=== PATIENT | male | born 1950 | race African-American/Black ===

== ENCOUNTER 2016-12-22 04:09 | Inpatient (IN) ==
--- NOTE | 2016-12-22 05:07 | Emergency Department Note ---
Arrival - Arrival Chief Complaint: Shortness of Breath Stated Complaint: SOB ED Nursing Triage Note: Patient to triage with c/o SOB that has been going on for 1 weeks time but worse this morning. Patient is a dialysis patient that is due for dialysis today. Patient states that the did get him down to his dry weight at his last pull and he has not went over his fluid limitations. Patient noted to have inspiratory and expiratory wheezing in triage that worsens when patient laid supine for EKG. Denies CP. Mode of Arrival: Wheelchair Time Seen by Provider: 12/22/16 05:01 - History of Present Illness HPI Narrative: This is a 66-year-old male of descent with a history of hyperlipidemia, hypertension, chronic renal failure on hemodialysis Wednesday, gout, type 2 diabetes and hypothyroidism who presents with worsening shortness of breath which has gotten worse over the past week. The patient believes that his dialysis has not been able to bring him to his dry weight and believes that he has excessive fluid in his body. Allergies/Adverse Reactions: Allergies Allergy/AdvReac Type Severity Reaction Status Date / Time prednisone Allergy RASH Verified 12/22/16 04:26 Home Medications: Home Medications Medication Instructions Recorded Confirmed Type Allopurinol 2 tablet PO DAILY 03/06/15 12/22/16 History Docusate Sodium Cap [Colace Cap] 100 mg PO DAILY 03/06/15 12/22/16 History Isosorbide Mononitrate [Imdur] 60 mg PO DAILY 03/06/15 12/22/16 History Levothyroxine Tab [Synthroid Tab] 50 mcg PO DAILY@0700 03/06/15 12/22/16 History Lovastatin 20 mg PO DAILY 03/06/15 12/22/16 History NIFEdipine XL TAB [Procardia Xl] 90 mg PO DAILY 03/06/15 12/22/16 History Ondansetron Tab [Zofran Tab] 4 mg PO Q6HR 03/06/15 12/22/16 History Oxycodone HCl/Acetaminophen 1 each PO Q4-6H PRN 03/06/15 12/22/16 History [Oxycodone-Acetaminophen 5-325] Pantoprazole Sodium [Protonix] 40 mg PO DAILY 03/06/15 12/22/16 History Sevelamer Carbonate Tab [Renvela 800 mg PO TID W/MEALS 03/06/15 12/22/16 History Tab] Travoprost 0.004% Oph Soln 1 drop BOTH EYES BEDTIME 03/06/15 12/22/16 History [Travatan Z] cloNIDine TAB [Catapres Tab] 0.1 mg PO BEDTIME 03/06/15 12/22/16 History traMADol TAB [Ultram] 1 tablet PO Q4H PRN 03/06/15 12/22/16 History Albuterol Sulfate [Proair HFA] 2 puff INH Q4HR PRN 12/22/16 12/22/16 History Cinacalcet [Sensipar] 1 tablet PO DAILY 12/22/16 12/22/16 History Insulin Detemir [Levemir FlexPen] 30 units SUBCUT DAILY W/BREAKFAST 12/22/1609/02 History Insulin Detemir [Levemir FlexPen] 50 units SUBCUT BEDTIME 12/22/16 12/22/16 History Lidocaine/Prilocaine 1 applic TRANSDERM DIRECTED 12/22/16 12/22/16 History [Lidocaine/Prilocaine 2.5%-2.5% Cream Kit] Metoclopramide Tab [Reglan Tab] 1 tablet PO BID 12/22/16 12/22/16 History Review of System - Review of System Constitutional: Absent: fever, night sweats Eyes: Absent: redness, vision change Head/Ears/Nose/Throat: Absent: epistaxis, nasal drainage Respiratory: Absent: respiratory distress, wheezing Cardiovascular: Present: dyspnea on exertion, orthopnea. Absent: chest pain Gastrointestinal: Absent: diarrhea, constipation, hematemesis, melena Genitourinary male: Absent: hematuria Musculoskeletal: Absent: joint swelling, lower back pain Skin: Absent: change in color, change in hair/nails Neurological: Absent: numbness, paresthesias Psychiatric: Absent: anxiety, suicidal thoughts Endocrine: Absent: heat intolerance, polydipsia Hematological/Lymphatic: Absent: easy bruising, lymphadenopathy Allergic/Immunologic: Absent: urticaria, itchy eyes Medical,Surgical,& Family Hx - Medical History Cardio: History of: Hypertension (resolved) Endocrine: History of: Diabetes Mellitus (IDDM), Dyslipidemia, Thyroid Disorder Rheumatology: History of;: Gout Renal: History of: Dialysis (), Renal Failure Gastrointestinal: History of: GERD - Social History Smoking Status: Never smoker Frequency of Alcohol Use: None Type of Drug Use: None Exam Vital Signs: Vital Signs Temperature 97.3 F L 12/22/16 04:14 Pulse Rate 93 H 12/22/16 04:14 Respiratory Rate 28 H 12/22/16 04:14 Blood Pressure 158/93 12/22/16 04:14 O2 Sat by Pulse Oximetry 86 L 12/22/16 04:14 - General Exam limited due to: ALOC - Head Head exam: Present: atraumatic - Eye Eye exam: Present: PERRL, EOMI - ENT ENT exam: Present: normal exam - Neck Neck exam: Present: normal inspection - Chest Chest inspection: Present: normal inspection - Respiratory Respiratory exam: Present: rales - Cardiovascular Cardiovascular exam: Present: regular rate, normal rhythm - Abdominal Exam Abdominal exam: Present: soft, normal bowel sounds - Extremities Exam Extremities exam: Present: normal inspection, full ROM - Back Exam Back exam: Present: normal inspection, full ROM - Neurological Exam Neurological exam: Present: alert, oriented X3 - Psychiatric Psychiatric exam: Present: normal affect, normal mood - Skin Skin exam: Present: warm, dry
--- NOTE | 2016-12-22 05:11 | EKG Report ---
Stationary ECG Study [facility] ER Test Date: 12/22/2016 4:17:53 AM Pat Name: RAPHAEL SCHERER Department: Room: Gender: M Account Review Specialist: : [id number] Requested by: Andrew Haro Order Number: [id number] Reading MD: JYOTHI SANCHEZ Intervals [place] Rate: 105 P: 53 MN: 173 QRS: 32 QRSD: 94 T: 79 QT: 378 QTc: 439 Interpretive Statements SINUS TACHYCARDIA SEPTAL INFARCT, AGE UNDETERMINED Electronically Signed On 12-22-16 16:18:37 CDT by JYOTHI SANCHEZ [email or web address]
[2016-12-22 05:20] LABS: Basophils # 0.1 10*3/uL (0.0-0.2); Basophils % 0.6 % (0.0-0.8); Eosinophils # 0.4 10*3/uL (0.0-0.87); Eosinophils % 4.4 % (0.00-10.9); Hematocrit 30.1 VOL% (42.0-52.0); Hemoglobin 10.1 GM/DL (14.0-18.0); Immature Granulocytes % 0.2 %; Immature Granulocytes Absolute 0.02 #; Lymphocytes # 1.1 10*3/uL (1.4-4.0); Lymphocytes % 11.2 % (21.2-54.2); Mean Corpuscular HGB Conc 33.6 GM/DL (32-36); Mean Corpuscular Hemoglobin 30 PG (27-34); Mean Corpuscular Volume 88.5 FL (87-102); Mean Platelet Volume 10.6 FL (9.6-12.0); Monocytes # 0.5 10*3/uL (0.11-0.8); Neutrophils # 7.8 10*3/uL (1.4-7.4); Neutrophils % 78.6 % (38.7-73.9); Platelet Count 137 T/CUMM (130-400); Red Cell Distribution Width 16.6 % (9.3-17.3); White Blood Count 9.9 T/CUMM (4-12)
[2016-12-22 05:48] LABS: Elliptocytes Few; Giant Platelets Few; Hypochromasia 1+; Platelet Estimate Normal
[2016-12-22] MEDS ORDERED: ACETAMINOPHEN 325 MG TABLET PO PRN (06:04)
[2016-12-22] MEDS ORDERED: DEXTROSE 50% 25 GM/50 ML VIAL IV PRN (06:04)
[2016-12-22] MEDS ORDERED: GLUCAGON 1 MG VIAL IM PRN (06:04)
[2016-12-22] MEDS ORDERED: ONDANSETRON 4 MG/2 ML VIAL IV PRN (06:04)
[2016-12-22 06:08] LABS: Albumin 3.2 G/DL (3.4-5.0); Bilirubin,Total 0.8 MG/DL (0.2-1.0); Calcium 7.5 MG/DL (8.5-10.1); Osmolality,Calculated 279.2 MOS/KG (273-304); Potassium 4.5 MMOL/L (3.5-5.1); Total Protein 6.4 G/DL (6.4-8.3)
--- NOTE | 2016-12-22 07:22 | XRay Report ---
Exam: XR chest 1V portable Date: 12/22/2016 5:09 AM Indication: Shortness of breath Comparison: 02/21/2014 Technical: AP Findings: Cardiomegaly is present with low volume effusions and minimal platelike atelectatic change along the minor fissure. A few reticular nodular densities are present. Mediastinum is intact. No pneumothorax. External cardiac leads are present. The left dialysis catheter has been removed Impression: 1. Cardiomegaly with tiny low volume effusions and mild interstitial edema 2. Removal of the left-sided dialysis catheter without pneumothorax PROCEDURE INTERPRETED AT [facility] DEPARTMENT OF RADIOLOGY Final Report Signed by: Dr. Lazaro Ivory
--- NOTE | 2016-12-22 10:52 | Nephrology Consult Note ---
History of Present Illness Chief complaint: ESRD History of present illness: Mr. Gale is a 66 year old male with ESRD secondary to diabetes. He reports a several day history of shortness of breath which worsened last night. This is primarily PEREZ. He denies chest pain or productive cough. He dialyzes in [place] on TTS schedule Home Medications Medication Instructions Recorded Confirmed Type Allopurinol 2 tablet PO DAILY 03/06/15 12/22/16 History Docusate Sodium Cap [Colace Cap] 100 mg PO DAILY 03/06/15 12/22/16 History Isosorbide Mononitrate [Imdur] 60 mg PO DAILY 03/06/15 12/22/16 History Levothyroxine Tab [Synthroid Tab] 50 mcg PO DAILY@0700 03/06/15 12/22/16 History Lovastatin 20 mg PO DAILY 03/06/15 12/22/16 History NIFEdipine XL TAB [Procardia Xl] 90 mg PO DAILY 03/06/15 12/22/16 History Ondansetron Tab [Zofran Tab] 4 mg PO Q6HR 03/06/15 12/22/16 History Oxycodone HCl/Acetaminophen 1 each PO Q4-6H PRN 03/06/15 12/22/16 History [Oxycodone-Acetaminophen 5-325] Pantoprazole Sodium [Protonix] 40 mg PO DAILY 03/06/15 12/22/16 History Sevelamer Carbonate Tab [Renvela 800 mg PO TID W/MEALS 03/06/15 12/22/16 History Tab] Travoprost 0.004% Oph Soln 1 drop BOTH EYES BEDTIME 03/06/15 12/22/16 History [Travatan Z] cloNIDine TAB [Catapres Tab] 0.1 mg PO BEDTIME 03/06/15 12/22/16 History traMADol TAB [Ultram] 1 tablet PO Q4H PRN 03/06/15 12/22/16 History Albuterol Sulfate [Proair HFA] 2 puff INH Q4HR PRN 12/22/16 12/22/16 History Cinacalcet [Sensipar] 1 tablet PO DAILY 12/22/16 12/22/16 History Insulin Detemir [Levemir FlexPen] 30 units SUBCUT DAILY W/BREAKFAST 12/22/1609/02 History Insulin Detemir [Levemir FlexPen] 50 units SUBCUT BEDTIME 12/22/16 12/22/16 History Lidocaine/Prilocaine 1 applic TRANSDERM DIRECTED 12/22/16 12/22/16 History [Lidocaine/Prilocaine 2.5%-2.5% Cream Kit] Metoclopramide Tab [Reglan Tab] 1 tablet PO BID 12/22/16 12/22/16 History Allergies Allergy/AdvReac Type Severity Reaction Status Date / Time prednisone Allergy RASH Verified 12/22/16 04:26 Medical,Surgical,& Family Hx - Medical History Cardio: History of: Hypertension (resolved) Endocrine: History of: Diabetes Mellitus (IDDM), Dyslipidemia, Thyroid Disorder Rheumatology: History of;: Gout Respiratory: History of: Bronchitis Renal: History of: Dialysis (), Renal Failure Gastrointestinal: History of: GERD - Surgical History Abdominal Surgeries: Surgical HX of: EGD - Family History Family History: Reports;: Family Cancer (dad/mother), Family Diabetes (mother), Family Hypertension (mother), Family Stroke (mother) - Social History Smoking Status: Never smoker Frequency of Alcohol Use: None Type of Drug Use: None Review of Systems 12 point system: reviewed and no additional remarkable complaints except as stated Exam - Vital Signs Vital signs: Period Temp Pulse Resp BP Sys/Pettit Pulse Ox Last 24 Hr 97.3 F-98.2 F 73-93 18-28 153-159/87-93 86 Exam: Gen.: Alert and oriented x3. ENT: Pupils equal round reactive to light. EOMs intact. Mucous membranes moist. Neck: Supple. No JVD or bruit. Cardiovascular: Regular rate and rhythm. No murmur rub or gallop Lungs: Rales in the bases. No wheezes at present Abdomen: Soft. Nontender. Positive bowel sounds. No organomegaly Extremities: 1-2+ edema Results - Labs CBC & BMP: 12/22/16 05:00 12/22/16 05:00 Assessment and Plan (1) ESRD (end stage renal disease) Status: Acute Assessment and plan: 66-year-old man with: * ESRD. He is seen during dialysis. Blood pressure is stable. Access is working well * Volume overload. 4-5 L volume removal today * Diabetes mellitus * Hypertension Current Visit: Yes (2) Volume overload Status: Acute Current Visit: Yes (3) Diabetes mellitus Status: Acute Current Visit: Yes (4) Hypertension Status: Acute Current Visit: Yes
[2016-12-22] MEDS ORDERED: IRON SUCROSE 100 MG/5 ML VIAL IV SCH (12:00)
[2016-12-22] MEDS ORDERED: SKIN HEALING OINT (AQUAPHOR) 50 GM TUBE TOP PRN (12:22)
[2016-12-22] MEDS: INSULIN REGULAR 100 UNIT/ML SUBCUT SCH ×3 (16:03→21:27)
[2016-12-22] MEDS: DOCUSATE SODIUM 100 MG CAPSULE PO SCH ×2 (16:04→21:27)
[2016-12-22] MEDS: PANTOPRAZOLE 40 MG TABLET PO SCH (18:30)
--- NOTE | 2016-12-22 19:03 | Internal Med History&Physical ---
Assessment and Plan (1) Diabetes mellitus Status: Chronic Current Visit: Yes Qualifiers: Diabetes mellitus type: type 2 Diabetes mellitus complication status: with kidney complications Diabetes mellitus complication detail: with chronic kidney disease Diabetes mellitus parts counterman insulin use: with parts counterman use Chronic kidney disease stage: on chronic dialysis Qualified Code(s): E11.22 - Type 2 diabetes mellitus with diabetic chronic kidney disease; N18.6 - End stage renal disease; Z79.4 - long-term (current) use of insulin; Z99.2 - Dependence on renal dialysis (2) ESRD (end stage renal disease) Status: Chronic Current Visit: Yes (3) Hypertension Status: Chronic Current Visit: Yes Qualifiers: Hypertension type: essential hypertension Qualified Code(s): I10 - Essential (primary) hypertension (4) Volume overload Status: Acute Current Visit: Yes History of Present Illness Chief complaint: shortness of breath History of present illness: Mr. Gale is a 66 year old male with history of ESRD on hemodialysis per Dr. Stapleton , DM, HTN, peripheral neuropathy, history of lower extremity skin wounds ( resolved), generalized weakness to both legs and uses motorized chair, chronic lymphedema to both lower extremities, dyslipidemia, hypothyroid, who presented to ER with volume overload. He had eaten more than usual over the Holiday. Home Medications Medication Instructions Recorded Confirmed Type Allopurinol 200 mg PO DAILY 03/06/15 12/22/16 History Docusate Sodium Cap [Colace Cap] 100 mg PO DAILY 03/06/15 12/22/16 History Isosorbide Mononitrate [Imdur] 60 mg PO DAILY 03/06/15 12/22/16 History Levothyroxine Tab [Synthroid Tab] 50 mcg PO DAILY@0700 03/06/15 12/22/16 History Lovastatin 20 mg PO DAILY 03/06/15 12/22/16 History NIFEdipine XL TAB [Procardia Xl] 90 mg PO DAILY 03/06/15 12/22/16 History Ondansetron Tab [Zofran Tab] 4 mg PO Q6HR 03/06/15 12/22/16 History Oxycodone HCl/Acetaminophen 1 each PO Q4-6H PRN 03/06/15 12/22/16 History [Oxycodone-Acetaminophen 5-325] Pantoprazole Sodium [Protonix] 40 mg PO DAILY 03/06/15 12/22/16 History Sevelamer Carbonate Tab [Renvela 800 mg PO TID W/MEALS 03/06/15 12/22/16 History Tab] Travoprost 0.004% Oph Soln 1 drop BOTH EYES BEDTIME 03/06/15 12/22/16 History [Travatan Z] cloNIDine TAB [Catapres Tab] 0.1 mg PO BEDTIME 03/06/15 12/22/16 History traMADol TAB [Ultram] 50 mg PO Q4H PRN 03/06/15 12/22/16 History Albuterol Sulfate [Proair HFA] 2 puff INH Q4HR PRN 12/22/16 12/22/16 History Cinacalcet [Sensipar] 30 mg PO DAILY 12/22/16 12/22/16 History Insulin Detemir [Levemir FlexPen] 30 units SUBCUT DAILY W/BREAKFAST 12/22/1609/02 History Insulin Detemir [Levemir FlexPen] 50 units SUBCUT BEDTIME 12/22/16 12/22/16 History Lidocaine/Prilocaine 1 applic TRANSDERM DIRECTED 12/22/16 12/22/16 History [Lidocaine/Prilocaine 2.5%-2.5% Cream Kit] Metoclopramide Tab [Reglan Tab] 1 tablet PO BID 12/22/16 12/22/16 History Allergies Allergy/AdvReac Type Severity Reaction Status Date / Time prednisone Allergy RASH Verified 12/22/16 04:26 Medical,Surgical,& Family Hx - Medical History Cardio: History of: Hypertension (resolved) Endocrine: History of: Diabetes Mellitus (IDDM), Dyslipidemia, Thyroid Disorder Rheumatology: History of;: Gout Respiratory: History of: Bronchitis Renal: History of: Dialysis (), Renal Failure Gastrointestinal: History of: GERD Musculoskeletal: History of: Musculoskeletal Problems (generalized weakness) Hematology: History of: Anemia (chronic disease) - Surgical History Cardiac Surgeries: Sugical HX of: Vascular Access Devices (dialysis fistula) Abdominal Surgeries: Surgical HX of: EGD - Family History Family History: Reports;: Family Cancer (dad/mother), Family Diabetes (mother), Family Hypertension (mother), Family Stroke (mother) - Social History Smoking Status: Never smoker Frequency of Alcohol Use: None Type of Drug Use: None Marital Status: Lives With:: Spouse Functional capacity: wheelchair bound - Constitutional Constitutional: Present: fatigue, lethargy, weakness - Respiratory Respiratory: Present: dyspnea - Gastrointestinal Gastrointestinal: Present: bloating Exam - Constitutional Vitals: Period Temp Pulse Resp BP Sys/Pettit Pulse Ox Last 24 Hr 97.2 F-98.2 F 73-93 18-28 149-159/75-93 86-96 General appearance: no acute distress - Head Head exam: Present: normocephalic - Eye Eye exam: Present: EOMI - Respiratory Respiratory exam: Present: clear to auscultation bilaterally. Absent: rales - Cardiovascular Cardiovascular exam: Present: regular rate and rhythm - GI/Abdominal GI/Abdominal exam: Present: soft. Absent: tenderness - Extremities Exam Extremities exam: Present: edema (mild) - Neurological Exam Neurological exam: Present: alert - Psychiatric Psychiatric exam: Present: normal mood - Skin Skin exam: Present: warm, dry Results - Labs CBC & BMP: 12/22/16 05:00 12/22/16 05:00 - EKG EKG shows: sinus rhythm - Diagnostic Findings Procedure: Chest x-ray: report reviewed by me Quality Measures - VTE Contraindication to Pharmacological VTE Prophylaxis: High Risk of Bleeding
[2016-12-22] MEDS ORDERED: traMADol 50 MG TABLET PO PRN (19:04)
[2016-12-22] MEDS ORDERED: INSULIN GLARGINE 100 UNIT/ML SUBCUT SCH (21:00)
[2016-12-22] MEDS ORDERED: TRAVOPROST 0.004% OPH SOLN 2.5 ML BOTTLE BOTH EYES SCH (21:00)
[2016-12-22] MEDS ORDERED: cloNIDine 0.1 MG TABLET PO SCH (21:00)
[2016-12-23] MEDS: ONDANSETRON 4 MG TABLET PO SCH ×3 (00:17→12:35)
[2016-12-23] MEDS: ALBUTEROL/IPRATROPIUM 3 ML NEB RESP TX SCH ×3 (01:27→14:24)
[2016-12-23 05:29] LABS: Basophils % 0.7 % (0.0-0.8); Eosinophils # 0.5 10*3/uL (0.0-0.87); Hemoglobin 10.2 GM/DL (14.0-18.0); Immature Granulocytes % 0.3 %; Immature Granulocytes Absolute 0.02 #; Lymphocytes # 1.3 10*3/uL (1.4-4.0); Lymphocytes % 23.1 % (21.2-54.2); Mean Corpuscular HGB Conc 32.9 GM/DL (32-36); Mean Corpuscular Hemoglobin 29 PG (27-34); Mean Corpuscular Volume 88.8 FL (87-102); Mean Platelet Volume 10.5 FL (9.6-12.0); Monocytes # 0.7 10*3/uL (0.11-0.8); Monocytes % 12.2 % (1.7-12.7); Neutrophils # 3.2 10*3/uL (1.4-7.4); Neutrophils % 54.7 % (38.7-73.9); Platelet Count 134 T/CUMM (130-400); Red Blood Count 3.49 MC/CUMM (3.8-5.5); Red Cell Distribution Width 16.9 % (9.3-17.3); White Blood Count 5.8 T/CUMM (4-12)
[2016-12-23 06:10] LABS: Albumin 3.1 G/DL (3.4-5.0); Bilirubin,Total 0.7 MG/DL (0.2-1.0); Magnesium 2.4 MG/DL (1.8-2.4); Osmolality,Calculated 280.8 MOS/KG (273-304); Phosphorous 3.4 MG/DL (2.5-4.9); Potassium 4.3 MMOL/L (3.5-5.1); Total Protein 6.3 G/DL (6.4-8.3)
[2016-12-23] MEDS ORDERED: LEVOTHYROXINE 50 MCG TABLET PO SCH (07:00)
[2016-12-23] MEDS ORDERED: INSULIN GLARGINE 100 UNIT/ML SUBCUT SCH (08:00)
[2016-12-23] MEDS ORDERED: DOCUSATE SODIUM 100 MG CAPSULE PO SCH (09:00)
[2016-12-23] MEDS ORDERED: ISOSORBIDE MONONITRATE 60 MG TABLET PO SCH (09:00)
[2016-12-23] MEDS ORDERED: NON-FORMULARY MEDICATION (Pantoprazole Sodium [Protonix] 40 MG) PO SCH (09:00)
[2016-12-23] MEDS ORDERED: CINACALCET 30 MG TABLET PO SCH (09:00)
[2016-12-23] MEDS ORDERED: ALLOPURINOL 100 MG TABLET PO SCH (09:00)
[2016-12-23] MEDS: INSULIN REGULAR 100 UNIT/ML SUBCUT SCH ×3 (10:04→17:47)
[2016-12-23] MEDS: SEVELAMER CARBONATE 800 MG TABLET PO SCH ×2 (10:05→12:35)
[2016-12-23] MEDS: PANTOPRAZOLE 40 MG TABLET PO SCH (10:05)
[2016-12-23] MEDS: DOCUSATE SODIUM 100 MG CAPSULE PO SCH (10:06)
[2016-12-23] MEDS ORDERED: ZINC OXIDE PASTE 113 GM TUBE TOP PRN (10:07)
--- NOTE | 2016-12-23 13:42 | Nephrology Progress Note ---
Nephrology - PN: Subj Interval history: Shortness of breath has improved significantly. No new symptom Exam (PN)-Nephrology - Vital Signs Vital signs: Period Temp Pulse Resp BP Sys/Pettit Pulse Ox Last 24 Hr 96.9 F-98.5 F 67-80 16-20 149-171/70-78 93-99 Exam: ENT: Normal Cardiovascular: Regular rate and rhythm. No murmur rub or gallop Lungs: Clear Extremities: 1+ edema - Lab 12/23/16 05:18 12/23/16 05:18 Most recent lab results Calcium 8.0 MG/DL (8.5-10.1) L 12/23/16 05:18 Phosphorus 3.4 MG/DL (2.5-4.9) 12/23/16 05:18 Magnesium 2.4 MG/DL (1.8-2.4) 12/23/16 05:18 Assessment and Plan (1) ESRD (end stage renal disease) Status: Chronic Assessment and plan: 66-year-old man with: * ESRD. Dialysis tomorrow * Volume overload. Much improved after dialysis yesterday. He is stable for discharge. Dry weight will be decreased in the outpatient unit * Diabetes mellitus * Hypertension Current Visit: Yes (2) Volume overload Status: Acute Current Visit: Yes (3) Diabetes mellitus Status: Chronic Current Visit: Yes Qualifiers: Diabetes mellitus type: type 2 Diabetes mellitus complication status: with kidney complications Diabetes mellitus complication detail: with chronic kidney disease Diabetes mellitus parts counterman insulin use: with [facility] use Chronic kidney disease stage: on chronic dialysis Qualified Code(s): E11.22 - Type 2 diabetes mellitus with diabetic chronic kidney disease; N18.6 - End stage renal disease; Z79.4 - dedicated intermodal truck driver (current) use of insulin; Z99.2 - Dependence on renal dialysis (4) Hypertension Status: Chronic Current Visit: Yes Qualifiers: Hypertension type: essential hypertension Qualified Code(s): I10 - Essential (primary) hypertension
--- NOTE | 2016-12-23 15:31 | Discharge Summary ---
Hospital Course - Hospital Course Hospital Course: Mr. Gale is a 66 year old male with history of ESRD on hemodialysis per Dr. Stapleton , DM, HTN, peripheral neuropathy, history of lower extremity skin wounds ( resolved), generalized weakness to both legs and uses motorized chair, chronic lymphedema to both lower extremities, dyslipidemia, hypothyroid, who presented to ER with volume overload. He had eaten more than usual over the Holiday, salty snacks. About four liters were pulled off in hemodialysis, and he feels better. Ready for discharge. Diagnosis - Discharge Diagnosis (1) Diabetes mellitus Status: Chronic (2) ESRD (end stage renal disease) Status: Chronic (3) Hypertension Status: Chronic (4) Volume overload Status: Acute Discharge Plan - Discharge Data Disposition: Disch To Home/Self Care Condition at Discharge: Stable Discharge Diet: other (renal diet) - Discharge Medications New Acetaminophen Tab [Tylenol Tab] 650 mg PO Q6H PRN tablet PRN Reason: Fever > 100.4 Or Headache Skin Healing Oint (Aquaphor) [Aquaphor] 1 applic TOP PRN PRN applic PRN Reason: Dry Skin Zinc Oxide Paste [Desitin Paste] 1 applic TOP PRN PRN applic PRN Reason: Diaper Rash Docusate Sodium Cap [Colace Cap] 100 mg PO BID capsule Continue Lovastatin 20 mg PO DAILY cloNIDine TAB [Catapres Tab] 0.1 mg PO BEDTIME Sevelamer Carbonate Tab [Renvela Tab] 800 mg PO TID W/MEALS Levothyroxine Tab [Synthroid Tab] 50 mcg PO DAILY@0700 Isosorbide Mononitrate [Imdur] 60 mg PO DAILY NIFEdipine XL TAB [Procardia Xl] 90 mg PO DAILY Allopurinol 200 mg PO DAILY Ondansetron Tab [Zofran Tab] 4 mg PO Q6HR Docusate Sodium Cap [Colace Cap] 100 mg PO DAILY traMADol TAB [Ultram] 50 mg PO Q4H PRN PRN Reason: Pain Oxycodone HCl/Acetaminophen [Oxycodone-Acetaminophen 5-325] 1 each PO Q4-6H PRN PRN Reason: Pain Travoprost 0.004% Oph Soln [Travatan Z] 1 drop BOTH EYES BEDTIME Pantoprazole Sodium [Protonix] 40 mg PO DAILY Changed Oxycodone HCl/Acetaminophen [Oxycodone-Acetaminophen 5-325] 1 each PO BID PRN #0 PRN Reason: Pain No Action Metoclopramide Tab [Reglan Tab] 1 tablet PO BID Lidocaine/Prilocaine [Lidocaine/Prilocaine 2.5%-2.5% Cream Kit] 1 applic TRANSDERM DIRECTED Insulin Detemir [Levemir FlexPen] 30 units SUBCUT DAILY W/BREAKFAST Albuterol Sulfate [Proair HFA] 2 puff INH Q4HR PRN PRN Reason: Shortness Of Breath Insulin Detemir [Levemir FlexPen] 50 units SUBCUT BEDTIME Cinacalcet [Sensipar] 30 mg PO DAILY - Follow Up or Referral Follow Up: Thi Barrera DO [Primary Care Provider] - - Forms/Instructions Additional Discharge Instructions: Follow up with Dr. Anna Barrera in clinic within the next 1-2 weeks. He will see Dr. Stapleton on dialysis unit. Exam - Constitutional Vitals: Period Temp Pulse Resp BP Sys/Pettit Pulse Ox Last 24 Hr 96.9 F-98.5 F 63-81 15-20 125-171/65-78 92-100 Exam: General appearance: no acute distress - Respiratory Respiratory exam: Present: clear to auscultation bilaterally - Cardiovascular Cardiovascular exam: Present: regular rate and rhythm - Extremities Exam Extremities exam: Present: edema (mild) - Neurological Exam Neurological exam: Present: alert Discharge Results Labs on day of discharge: Labs from last 24 hours 12/23/16 12/23/16 12/23/16 11:32 08:08 05:18 WBC RBC Hgb Hct MCV MCH MCHC RDW Plt Count MPV Neut % (Auto) Lymph % (Auto) [place] % (Auto) Eos % (Auto) Baso % (Auto) Neut # (Auto) Lymph # (Auto) [place] # (Auto) Eos # (Auto) Baso # (Auto) Immature Gran % Nucleated RBC % Immature Gran # Nucleated RBCs # Immature Plt Fraction Sodium 137 Potassium 4.3 Chloride 99 Carbon Dioxide 29 Anion Gap 13.3 BUN 32 H Creatinine 7.30 H GFR Calculation 10 BUN/Creatinine Ratio 4.00 L Glucose 121 H POC Glucose 124 H 113 H Calculated Osmolality 280.8 Calcium 8.0 L Phosphorus 3.4 Magnesium 2.4 Total Bilirubin 0.70 AST 16 ALT 16 Alkaline Phosphatase 137 H Total Protein 6.3 L Albumin 3.1 L Globulin 3.2 Albumin/Globulin Ratio 0.9 L 12/23/16 12/22/16 12/22/16 05:18 21:21 16:11 WBC 5.8 D RBC 3.49 L Hgb 10.2 L Hct 31.0 L MCV 88.8 MCH 29 MCHC 32.9 RDW 16.9 Plt Count 134 MPV 10.5 Neut % (Auto) 54.7 Lymph % (Auto) 23.1 [place] % (Auto) 12.2 Eos % (Auto) 9.0 Baso % (Auto) 0.7 Neut # (Auto) 3.2 Lymph # (Auto) 1.3 L [place] # (Auto) 0.7 Eos # (Auto) 0.5 Baso # (Auto) 0.0 Immature Gran % 0.3 Nucleated RBC % 0.0 Immature Gran # 0.02 Nucleated RBCs # 0.00 Immature Plt Fraction 0.0 Sodium Potassium Chloride Carbon Dioxide Anion Gap BUN Creatinine GFR Calculation BUN/Creatinine Ratio Glucose POC Glucose 192 H 132 H Calculated Osmolality Calcium Phosphorus Magnesium Total Bilirubin AST ALT Alkaline Phosphatase Total Protein Albumin Globulin Albumin/Globulin Ratio DS: Provider Date of admission: 12/22/16 06:04 Primary care physician: Thi Barrera DO Attending physician on admission: Thi Barrera DO Consults: 12/22/16 06:04 Consult to Case Mgmt/Social Srvs [CONS] Routine Reason for Case Mgmt/Social Srvs: Discharge Planning 12/22/16 06:09 Consult to Physician [CONS] Routine Comment: Hemodialysis Consulting Provider: Alan Stapleton Consult to Specialist Group: Nephrology Person Notified: Carmela Date Notified: 12/22/16 Time Notified: 08:55 12/22/16 23:03 Consult to Occupational Therapy [CONS] Routine Reason for Occupational Therapy: Weakness 12/22/16 23:04 Consult to Physical Therapy [CONS] Routine Reason for Physical Therapy: Evaluate and Treat Discharging clinician: Thi Barrera DO Expected date of discharge: 12/23/16
[2016-12-23 18:00] VITALS: BP 179/82
== END 2016-12-23 18:25 | disposition home health service (06) | DRG 682 ==
LOC: N.ED 04:09 → N.EDINP 06:04 → N.TELEN 06:32
PROVIDERS: ADMIT Internal Medicine; ATTEND Internal Medicine

== ENCOUNTER 2017-01-25 04:22 | Inpatient (IN) ==
[2017-01-25] MEDS ORDERED: hydrALAZINE 20 MG/1 ML VIAL ONE (04:26)
[2017-01-25] MEDS ORDERED: NITROGLYCERIN DRIP 50 MG/250 ML BOTTLE IV ONE (04:39)
[2017-01-25] MEDS ORDERED: hydrALAZINE 20 MG/1 ML VIAL IV STA (05:04)
[2017-01-25 05:14] LABS: Basophils # 0.1 10*3/uL (0.0-0.2); Basophils % 0.8 % (0.0-0.8); Eosinophils # 0.8 10*3/uL (0.0-0.87); Eosinophils % 6.9 % (0.00-10.9); Hematocrit 35.8 VOL% (42.0-52.0); Hemoglobin 11.5 GM/DL (14.0-18.0); Immature Granulocytes % 0.5 %; Immature Granulocytes Absolute 0.06 #; Lymphocytes # 3.7 10*3/uL (1.4-4.0); Lymphocytes % 31.2 % (21.2-54.2); Mean Corpuscular HGB Conc 32.1 GM/DL (32-36); Mean Corpuscular Hemoglobin 29 PG (27-34); Mean Corpuscular Volume 90.2 FL (87-102); Mean Platelet Volume 9.9 FL (9.6-12.0); Monocytes # 0.7 10*3/uL (0.11-0.8); Neutrophils # 6.5 10*3/uL (1.4-7.4); Neutrophils % 54.6 % (38.7-73.9); Platelet Count 228 T/CUMM (130-400); Red Blood Count 3.97 MC/CUMM (3.8-5.5); Red Cell Distribution Width 16.5 % (9.3-17.3)
[2017-01-25 05:24] LABS: Albumin 3.5 G/DL (3.4-5.0); Bilirubin,Total 0.7 MG/DL (0.2-1.0); Calcium 8.1 MG/DL (8.5-10.1); Total Protein 7.2 G/DL (6.4-8.3)
[2017-01-25 05:26] LABS: Troponin I Only 0.079 NG/ML (0.00-0.045)
[2017-01-25] MEDS ORDERED: NITROGLYCERIN DRIP 50 MG/250 ML BOTTLE IV SCH (05:30)
--- NOTE | 2017-01-25 05:57 | Emergency Department Note ---
Arrival - Arrival Chief Complaint: Shortness of Breath Stated Complaint: cant hardly breathe ED Nursing Triage Note: Pt checked in admissions and rushed to room from front. Dr. Haro at bedside. Pt was experiencing severe respiratory distress with an oxygen saturation in the 80s. Pt had audibly wet lung sounds and was unable to catch his breath. Pt last had dialysis on Wednesday, following his Wednesday, , Wednesday schedule. Mode of Arrival: Wheelchair Time Seen by Provider: 01/25/17 04:57 - History of Present Illness HPI Narrative: This is a 66-year-old male of descent with a history of end-stage renal disease on hemodialysis Wednesday under the care of Dr. Turpin, type 2 diabetes, hypertension, diabetic peripheral neuropathy, hyperlipidemia, hypothyroidism who presents with a blood pressure 250/145 with acute respiratory failure diaphoresis and bilateral rales which woke him from sleep approximately 1 hour prior to admission. The patient's blood pressure was controlled and he was placed on CPAP with a chest x-ray showing pulmonary vascular congestion with resolution of his respiratory failure. Allergies/Adverse Reactions: Allergies Allergy/AdvReac Type Severity Reaction Status Date / Time prednisone Allergy RASH Verified 01/25/17 05:12 Home Medications: Home Medications Medication Instructions Recorded Confirmed Type Allopurinol 200 mg PO DAILY 03/06/15 12/22/16 History Docusate Sodium Cap [Colace Cap] 100 mg PO DAILY 03/06/15 12/22/16 History Isosorbide Mononitrate [Imdur] 60 mg PO DAILY 03/06/15 12/22/16 History Levothyroxine Tab [Synthroid Tab] 50 mcg PO DAILY@0700 03/06/15 12/22/16 History Lovastatin 20 mg PO DAILY 03/06/15 12/22/16 History NIFEdipine XL TAB [Procardia Xl] 90 mg PO DAILY 03/06/15 12/22/16 History Ondansetron Tab [Zofran Tab] 4 mg PO Q6HR 03/06/15 12/22/16 History Oxycodone HCl/Acetaminophen 1 each PO Q4-6H PRN 03/06/15 12/22/16 History [Oxycodone-Acetaminophen 5-325] Pantoprazole Sodium [Protonix] 40 mg PO DAILY 03/06/15 12/22/16 History Sevelamer Carbonate Tab [Renvela 800 mg PO TID W/MEALS 03/06/15 12/22/16 History Tab] Travoprost 0.004% Oph Soln 1 drop BOTH EYES BEDTIME 03/06/15 12/22/16 History [Travatan Z] cloNIDine TAB [Catapres Tab] 0.1 mg PO BEDTIME 03/06/15 12/22/16 History traMADol TAB [Ultram] 50 mg PO Q4H PRN 03/06/15 12/22/16 History Albuterol Sulfate [Proair HFA] 2 puff INH Q4HR PRN 12/22/16 12/22/16 History Cinacalcet [Sensipar] 30 mg PO DAILY 12/22/16 12/22/16 History Insulin Detemir [Levemir FlexPen] 30 units SUBCUT DAILY W/BREAKFAST 12/22/1609/02 History Insulin Detemir [Levemir FlexPen] 50 units SUBCUT BEDTIME 12/22/16 12/22/16 History Lidocaine/Prilocaine 1 applic TRANSDERM DIRECTED 12/22/16 12/22/16 History [Lidocaine/Prilocaine 2.5%-2.5% Cream Kit] Metoclopramide Tab [Reglan Tab] 1 tablet PO BID 12/22/16 12/22/16 History Acetaminophen Tab [Tylenol Tab] 650 mg PO Q6H PRN tablet 12/23/16 Rx Docusate Sodium Cap [Colace Cap] 100 mg PO BID capsule 12/23/16 Rx Oxycodone HCl/Acetaminophen 1 each PO BID PRN #0 12/23/16 12/22/16 Rx [Oxycodone-Acetaminophen 5-325] Skin Healing Oint (Aquaphor) 1 applic TOP PRN PRN applic 12/23/16 Rx [Aquaphor] Zinc Oxide Paste [Desitin Paste] 1 applic TOP PRN PRN applic 12/23/16 Rx Review of System - Review of System Constitutional: Absent: fever, night sweats Eyes: Absent: redness, vision change Head/Ears/Nose/Throat: Absent: epistaxis, nasal drainage Respiratory: Present: respiratory distress. Absent: cough, wheezing Cardiovascular: Present: dyspnea on exertion, orthopnea. Absent: edema Gastrointestinal: Absent: diarrhea, constipation, hematemesis, melena Genitourinary male: Absent: dysuria, hematuria, discharge Musculoskeletal: Absent: joint swelling, lower back pain, leg pain Skin: Absent: change in color, change in hair/nails, pruritus Neurological: Absent: numbness, paresthesias, confusion Psychiatric: Absent: anxiety, depression Endocrine: Absent: polydipsia, polyuria Hematological/Lymphatic: Absent: as per HPI, easy bleeding Allergic/Immunologic: Absent: urticaria, itchy eyes Medical,Surgical,& Family Hx - Medical History Cardio: History of: Hypertension Endocrine: History of: Diabetes Mellitus (IDDM), Dyslipidemia, Thyroid Disorder Rheumatology: History of;: Gout Respiratory: History of: Bronchitis Renal: History of: Dialysis (), Renal Failure Gastrointestinal: History of: GERD Musculoskeletal: History of: Musculoskeletal Problems (generalized weakness) Hematology: History of: Anemia (chronic disease) - Surgical History Cardiac Surgeries: Sugical HX of: Vascular Access Devices (dialysis fistula to right arm) Abdominal Surgeries: Surgical HX of: EGD - Family History Family History: Reports;: Family Cancer (dad/mother), Family Diabetes (mother), Family Hypertension (mother), Family Stroke (mother) - Social History Smoking Status: Never smoker Frequency of Alcohol Use: None Type of Drug Use: None Exam Vital Signs: Vital Signs Temperature 98.2 F 01/25/17 04:23 Pulse Rate 115 H 01/25/17 04:23 Respiratory Rate 44 H 01/25/17 04:23 Blood Pressure 203/140 01/25/17 04:23 O2 Sat by Pulse Oximetry 100 01/25/17 05:55 - General General appearance: alert - Head Head exam: Present: atraumatic, normocephalic - Eye Eye exam: Present: PERRL, EOMI - ENT ENT exam: Present: normal exam, normal oropharynx - Neck Neck exam: Present: normal inspection, full ROM - Chest Chest inspection: Present: normal inspection - Respiratory Respiratory exam: Present: rales - Cardiovascular Cardiovascular exam: Present: regular rate, normal rhythm - Abdominal Exam Abdominal exam: Present: soft, normal bowel sounds - Extremities Exam Extremities exam: Present: normal inspection, full ROM - Back Exam Back exam: Present: normal inspection, full ROM - Neurological Exam Neurological exam: Present: alert, oriented X3 - Psychiatric Psychiatric exam: Present: normal affect, normal mood - Skin Skin exam: Present: warm, dry Course Course Narrative: The case was discussed with Dr. Cazares who agreed to admit the patient for evaluation by Dr. Stapleton the outdoor illuminating engineer. The patient's acute respiratory distress was improved by controlling his blood pressure with hydralazine 20 mg IV and nitroglycerin drip. The patient was weaned off the CPAP and is now on 2 L nasal O2 speaking in complete sentences and comfortable. Results - Labs CBC & BMP: 01/25/17 04:24 01/25/17 04:24 Disposition Clinical Impression: Acute respiratory failure, Congestive heart failure Disposition: Still a Patient New Prescriptions: The case was discussed with Dr. Cazares and agreed to admit the patient for evaluation by the outdoor illuminating engineer Dr. Turpin under the service of Dr. Barrera. After the patient's blood pressure was controlled his acute respiratory distress was improved and he was weaned off the CPAP. The patient is currently on 2 L nasal O2 speaking in complete sentences and in no acute pulmonary distress.
[2017-01-25] MEDS ORDERED: ACETAMINOPHEN 325 MG TABLET PO PRN (06:01)
[2017-01-25] MEDS ORDERED: GLUCAGON 1 MG VIAL IM PRN ×2 (06:01→08:59)
[2017-01-25] MEDS ORDERED: DEXTROSE 50% 25 GM/50 ML VIAL IV PRN ×2 (06:01→08:59)
--- NOTE | 2017-01-25 06:39 | XRay Report ---
History is wheezing Comparison 12/22/2016 The heart and vessels are enlarged. Hilar contours grossly unchanged There are mildly increasing diffuse bilateral interstitial and hazy pulmonary opacities without more focal consolidation. There is mild thickening in the minor fissure. Impression: Interval development of the mild diffuse pulmonary edema PROCEDURE INTERPRETED AT [facility] DEPARTMENT OF RADIOLOGY Final Report Signed by: Dr. Cindy Sales
[2017-01-25] MEDS: DOCUSATE SODIUM 100 MG CAPSULE PO SCH ×2 (08:45→21:42)
[2017-01-25] MEDS: PANTOPRAZOLE 40 MG TABLET PO SCH (08:45)
[2017-01-25] MEDS: ALBUTEROL/IPRATROPIUM 3 ML NEB RESP TX PRN (09:14)
--- NOTE | 2017-01-25 09:41 | Order Completion Report ---
See report scanned to EMR
[2017-01-25] MEDS: BUDESONIDE 0.25 MG/2 ML NEB RESP TX SCH ×2 (09:57→19:59)
--- NOTE | 2017-01-25 10:05 | Nephrology Consult Note ---
History of Present Illness Chief complaint: ESRD History of present illness: Mr. Gale is a 66 year old male with ESRD secondary to diabetes. He presented with hypertension and shortness of breath. His hypertension was treated and is S OB has improved. He is now on BiPAP. He denies chest pain. Home Medications Medication Instructions Recorded Confirmed Type Allopurinol 200 mg PO DAILY 03/06/15 01/25/17 History Isosorbide Mononitrate [Imdur] 60 mg PO DAILY 03/06/15 01/25/17 History Levothyroxine Tab [Synthroid Tab] 50 mcg PO DAILY@0700 03/06/15 01/25/17 History Lovastatin 20 mg PO DAILY 03/06/15 01/25/17 History NIFEdipine XL TAB [Procardia Xl] 90 mg PO DAILY 03/06/15 01/25/17 History Ondansetron Tab [Zofran Tab] 4 mg PO TID PRN 03/06/15 01/25/17 History Pantoprazole Sodium [Protonix] 40 mg PO DAILY 03/06/15 01/25/17 History Sevelamer Carbonate Tab [Renvela 800 mg PO TID W/MEALS 03/06/15 01/25/17 History Tab] Travoprost 0.004% Oph Soln 1 drop BOTH EYES BEDTIME 03/06/15 01/25/17 History [Travatan Z] cloNIDine TAB [Catapres Tab] 0.1 mg PO DAILY 03/06/15 01/25/17 History traMADol TAB [Ultram] 50 mg PO Q4H PRN 03/06/15 01/25/17 History Albuterol Sulfate [Proair HFA] 2 puff INH Q4HR PRN 12/22/16 01/25/17 History Cinacalcet [Sensipar] 30 mg PO DAILY 12/22/16 01/25/17 History Insulin Detemir [Levemir FlexPen] 15 units SUBCUT BEDTIME 12/22/16 01/25/17 History Insulin Detemir [Levemir FlexPen] 30 units SUBCUT DAILY W/BREAKFAST 12/22/1601/03 History Lidocaine/Prilocaine 1 applic TRANSDERM DIRECTED 12/22/16 01/25/17 History [Lidocaine/Prilocaine 2.5%-2.5% Cream Kit] Metoclopramide Tab [Reglan Tab] 1 tablet PO BID 12/22/16 01/25/17 History Docusate Sodium Cap [Colace Cap] 100 mg PO BID PRN 01/25/17 01/25/17 History Allergies Allergy/AdvReac Type Severity Reaction Status Date / Time prednisone Allergy RASH Verified 01/25/17 05:12 Medical,Surgical,& Family Hx - Medical History Cardio: History of: Hypertension Endocrine: History of: Diabetes Mellitus (IDDM), Dyslipidemia, Thyroid Disorder Rheumatology: History of;: Gout Respiratory: History of: Bronchitis Renal: History of: Dialysis (), Renal Failure Gastrointestinal: History of: GERD Musculoskeletal: History of: Musculoskeletal Problems (generalized weakness) Hematology: History of: Anemia (chronic disease) - Surgical History Cardiac Surgeries: Sugical HX of: Vascular Access Devices (dialysis fistula to right arm) Abdominal Surgeries: Surgical HX of: EGD - Family History Family History: Reports;: Family Cancer (dad/mother), Family Diabetes (mother), Family Hypertension (mother), Family Stroke (mother) - Social History Smoking Status: Never smoker Frequency of Alcohol Use: None Type of Drug Use: None Review of Systems 12 point system: reviewed and no additional remarkable complaints except as stated Exam - Vital Signs Vital signs: Period Temp Pulse Resp BP Sys/Pettit Pulse Ox Last 24 Hr 97.8 F-98.7 F 86-120 17-44 136-203/74-140 75-100 Exam: Gen.: Alert and oriented x3. ENT: Pupils equal round reactive to light. EOMs intact. Mucous membranes moist. Neck: Supple. No JVD or bruit. Cardiovascular: Regular rate and rhythm. No murmur rub or gallop Lungs: Bibasilar rales Abdomen: Soft. Nontender. Positive bowel sounds. No organomegaly Extremities: 1-2+ edema Results - Labs CBC & BMP: 01/25/17 04:24 01/25/17 04:24 Assessment and Plan (1) ESRD (end stage renal disease) Status: Chronic Assessment and plan: 66-year-old man with: * ESRD. Emergent dialysis has been arranged * Pulmonary edema * Hypertension * Diabetes mellitus Current Visit: No (2) Volume overload Status: Acute Current Visit: No (3) Diabetes mellitus Status: Chronic Current Visit: No Qualifiers: (4) Hypertension Status: Chronic Current Visit: No Qualifiers:
--- NOTE | 2017-01-25 12:22 | Pulmonology Consult Note ---
Assessment and Plan (1) Acute respiratory failure Status: Acute Assessment and plan: He was hypoxemic earlier and has improved with facemask BiPAP. Because of this is fluid overload and congestive heart failure secondary to renal failure. Normal what he has done to become fluid overloaded in the last 2 days. Current Visit: Yes (2) Congestive heart failure Status: Acute Assessment and plan: Need to check LV ejection fraction on echo. Current Visit: Yes (3) Volume overload Status: Acute Assessment and plan: Patient is to have emergent dialysis. This should have his blood pressure and his fluid overload. Current Visit: No (4) ESRD (end stage renal disease) Status: Chronic Current Visit: No (5) Hypertension Status: Chronic Assessment and plan: Pressures improved with current medications. Should get better with dialysis. Current Visit: No Qualifiers: History of Present Illness Chief complaint: Shortness of breath History of present illness: Mr. Gale is a 66 year old male who is an end-stage renal failure patient on dialysis. He was last dialyzed on Wednesday. He came in today severely short of breath and has pulmonary edema. Dr. Stapleton has seen him and is about to be emergently dialyzed. He is now on BiPAP with 2 L oxygen and has an O2 sat in the upper 90s. He is short of breath. He does have orthopnea. He has a trace of peripheral edema. He has not had fever or chills or purulent sputum Home Medications Medication Instructions Recorded Confirmed Type Allopurinol 200 mg PO DAILY 03/06/15 01/25/17 History Isosorbide Mononitrate [Imdur] 60 mg PO DAILY 03/06/15 01/25/17 History Levothyroxine Tab [Synthroid Tab] 50 mcg PO DAILY@0700 03/06/15 01/25/17 History Lovastatin 20 mg PO DAILY 03/06/15 01/25/17 History NIFEdipine XL TAB [Procardia Xl] 90 mg PO DAILY 03/06/15 01/25/17 History Ondansetron Tab [Zofran Tab] 4 mg PO TID PRN 03/06/15 01/25/17 History Pantoprazole Sodium [Protonix] 40 mg PO DAILY 03/06/15 01/25/17 History Sevelamer Carbonate Tab [Renvela 800 mg PO TID W/MEALS 03/06/15 01/25/17 History Tab] Travoprost 0.004% Oph Soln 1 drop BOTH EYES BEDTIME 03/06/15 01/25/17 History [Travatan Z] cloNIDine TAB [Catapres Tab] 0.1 mg PO DAILY 03/06/15 01/25/17 History traMADol TAB [Ultram] 50 mg PO Q4H PRN 03/06/15 01/25/17 History Albuterol Sulfate [Proair HFA] 2 puff INH Q4HR PRN 12/22/16 01/25/17 History Cinacalcet [Sensipar] 30 mg PO DAILY 12/22/16 01/25/17 History Insulin Detemir [Levemir FlexPen] 15 units SUBCUT BEDTIME 12/22/16 01/25/17 History Insulin Detemir [Levemir FlexPen] 30 units SUBCUT DAILY W/BREAKFAST 12/22/1601/03 History Lidocaine/Prilocaine 1 applic TRANSDERM DIRECTED 12/22/16 01/25/17 History [Lidocaine/Prilocaine 2.5%-2.5% Cream Kit] Metoclopramide Tab [Reglan Tab] 1 tablet PO BID 12/22/16 01/25/17 History Docusate Sodium Cap [Colace Cap] 100 mg PO BID PRN 01/25/17 01/25/17 History Allergies Allergy/AdvReac Type Severity Reaction Status Date / Time prednisone Allergy RASH Verified 01/25/17 05:12 - Cardiovascular Cardiovascular: Present: dyspnea, dyspnea on exertion, orthopnea - Respiratory Respiratory: Present: dyspnea, dyspnea on exertion - Genitourinary Genitourinary: Present: other (Renal failure on dialysis) Exam (Pulmonay) H&P - Constitutional Vitals: Period Temp Pulse Resp BP Sys/Pettit Pulse Ox Last 24 Hr 97.8 F-98.7 F 86-120 17-44 136-203/74-140 75-100 Exam: Patient's alert responsive nods to questions. Wearing facemask BiPAP. Blood pressure was markedly elevated at 245/150 on admission. Pressure is 157/88 at present. Pupils react to light. Neck is supple. Chest reveals rales bilaterally in the bases. Heart rate in the 80s no murmurs. Abdomen soft nontender no masses. Extremities no clubbing cyanosis. He does have peripheral edema 1+. Medical,Surgical,& Family Hx - Medical History Cardio: History of: Hypertension Endocrine: History of: Diabetes Mellitus (IDDM), Dyslipidemia, Thyroid Disorder Rheumatology: History of;: Gout Respiratory: History of: Bronchitis Renal: History of: Dialysis (), Renal Failure Gastrointestinal: History of: GERD Musculoskeletal: History of: Musculoskeletal Problems (generalized weakness) Hematology: History of: Anemia (chronic disease) - Surgical History Cardiac Surgeries: Sugical HX of: Vascular Access Devices (dialysis fistula to right arm) Abdominal Surgeries: Surgical HX of: EGD - Family History Family History: Reports;: Family Cancer (dad/mother), Family Diabetes (mother), Family Hypertension (mother), Family Stroke (mother) - Social History Smoking Status: Never smoker Frequency of Alcohol Use: None Type of Drug Use: None Results - Labs CBC & BMP: 01/25/17 04:24 01/25/17 04:24 Lab Results: I have reviewed the past 24 hour labs - Diagnostic Findings Procedure: Chest x-ray: image reviewed by me (Bilateral pulmonary edema that was not present on last x-ray of 12/22/2016.) Quality Measures - VTE Contraindication to Pharmacological VTE Prophylaxis: High Risk of Bleeding
--- NOTE | 2017-01-25 12:32 | Order Completion Report ---
See report scanned to EMR
[2017-01-25 12:33] LABS: Hepatitis A Ab IgM Quant 0.21 Index; Hepatitis A Ab IgM Result Negative (Negative); Hepatitis B Core IgM Quant 0.13 Index; Hepatitis B Core IgM Result Negative (Negative); Hepatitis B Surface Ag Quant < 0.10 Index; Hepatitis B Surface Ag Result Negative (Negative); Hepatitis C Virus Ab Quant 0.04 Index; Hepatitis C Virus Ab Result Negative (Negative)
[2017-01-25] MEDS: ISOSORBIDE MONONITRATE 60 MG TABLET PO SCH (13:44)
--- NOTE | 2017-01-25 14:10 | Order Completion Report ---
See report scanned to EMR
--- NOTE | 2017-01-25 16:15 | Order Completion Report ---
See report scanned to EMR
--- NOTE | 2017-01-25 16:19 | Internal Med History&Physical ---
Assessment and Plan (1) Acute respiratory failure Status: Acute Current Visit: Yes Qualifiers: Respiratory failure complication: hypoxia Qualified Code(s): J96.01 - Acute respiratory failure with hypoxia (2) Volume overload Status: Acute Current Visit: Yes Qualifiers: Hypervolemia type: other Qualified Code(s): E87.79 - Other fluid overload (3) Diabetes mellitus Status: Chronic Current Visit: Yes Qualifiers: Diabetes mellitus type: type 2 Diabetes mellitus complication status: with kidney complications Diabetes mellitus complication detail: with chronic kidney disease Diabetes mellitus retirement insulin use: with retirement use Chronic kidney disease stage: on chronic dialysis Qualified Code(s): E11.22 - Type 2 diabetes mellitus with diabetic chronic kidney disease; N18.6 - End stage renal disease; N18.6 - End stage renal disease; N18.6 - End stage renal disease; N18.6 - End stage renal disease; Z79.4 - termite technician (current) use of insulin; Z79.4 - termite technician (current) use of insulin; Z79.4 - residential (current ) use of insulin; Z79.4 - residential (current) use of insulin; Z99.2 - Dependence on renal dialysis; Z99.2 - Dependence on renal dialysis; Z99.2 - Dependence on renal dialysis; Z99.2 - Dependence on renal dialysis (4) ESRD (end stage renal disease) Status: Chronic Current Visit: Yes (5) Hypertension Status: Chronic Current Visit: Yes Qualifiers: Hypertension type: essential hypertension History of Present Illness Chief complaint: shortness of breath History of present illness: Mr. Gale is a 66 year old male with ESRD on hemodialysis, HTN, DM, cardiomyopathy with LVEF 40%, pulmonary hypertension, history of peripheral edema and skin wounds, generalized weakness and wheelchair bound, presented to ER with worsening shortness of breath and volume overload. He reports following the PO fluid restriction, but in recent weeks, he has been over eating salty snacks. Home Medications Medication Instructions Recorded Confirmed Type Allopurinol 200 mg PO DAILY 03/06/15 01/25/17 History Isosorbide Mononitrate [Imdur] 60 mg PO DAILY 03/06/15 01/25/17 History Levothyroxine Tab [Synthroid Tab] 50 mcg PO DAILY@0700 03/06/15 01/25/17 History Lovastatin 20 mg PO DAILY 03/06/15 01/25/17 History NIFEdipine XL TAB [Procardia Xl] 90 mg PO DAILY 03/06/15 01/25/17 History Ondansetron Tab [Zofran Tab] 4 mg PO TID PRN 03/06/15 01/25/17 History Pantoprazole Sodium [Protonix] 40 mg PO DAILY 03/06/15 01/25/17 History Sevelamer Carbonate Tab [Renvela 800 mg PO TID W/MEALS 03/06/15 01/25/17 History Tab] Travoprost 0.004% Oph Soln 1 drop BOTH EYES BEDTIME 03/06/15 01/25/17 History [Travatan Z] cloNIDine TAB [Catapres Tab] 0.1 mg PO DAILY 03/06/15 01/25/17 History traMADol TAB [Ultram] 50 mg PO Q4H PRN 03/06/15 01/25/17 History Albuterol Sulfate [Proair HFA] 2 puff INH Q4HR PRN 12/22/16 01/25/17 History Cinacalcet [Sensipar] 30 mg PO DAILY 12/22/16 01/25/17 History Insulin Detemir [Levemir FlexPen] 15 units SUBCUT BEDTIME 12/22/16 01/25/17 History Insulin Detemir [Levemir FlexPen] 30 units SUBCUT DAILY W/BREAKFAST 12/22/1601/03 History Lidocaine/Prilocaine 1 applic TRANSDERM DIRECTED 12/22/16 01/25/17 History [Lidocaine/Prilocaine 2.5%-2.5% Cream Kit] Metoclopramide Tab [Reglan Tab] 1 tablet PO BID 12/22/16 01/25/17 History Docusate Sodium Cap [Colace Cap] 100 mg PO BID PRN 01/25/17 01/25/17 History Allergies Allergy/AdvReac Type Severity Reaction Status Date / Time prednisone Allergy RASH Verified 01/25/17 05:12 Medical,Surgical,& Family Hx - Medical History Cardio: History of: Hypertension Endocrine: History of: Diabetes Mellitus (IDDM), Dyslipidemia, Thyroid Disorder Rheumatology: History of;: Gout Respiratory: History of: Bronchitis Renal: History of: Dialysis (), Renal Failure Gastrointestinal: History of: GERD Musculoskeletal: History of: Musculoskeletal Problems (generalized weakness) Hematology: History of: Anemia (chronic disease) - Surgical History Cardiac Surgeries: Sugical HX of: Vascular Access Devices (dialysis fistula to right arm) Abdominal Surgeries: Surgical HX of: EGD - Family History Family History: Reports;: Family Cancer (dad/mother), Family Diabetes (mother), Family Hypertension (mother), Family Stroke (mother) - Social History Smoking Status: Never smoker Frequency of Alcohol Use: None Type of Drug Use: None Marital Status: Lives With:: Spouse Functional capacity: wheelchair bound - Constitutional Constitutional: Present: weakness - Respiratory Respiratory: Present: dyspnea, dyspnea on exertion - Gastrointestinal Gastrointestinal: Present: nausea. Absent: vomiting - Musculoskeletal Musculoskeletal: Present: muscle weakness - Psychiatric Psychiatric: Absent: anxiety Exam - Constitutional Vitals: Period Temp Pulse Resp BP Sys/Pettit Pulse Ox Last 24 Hr 97.8 F-98.7 F 80-120 13-44 136-203/74-140 75-100 General appearance: no acute distress - Head Head exam: Present: normocephalic - Eye Eye exam: Present: EOMI - Respiratory Respiratory exam: Present: decreased breath sounds, rales (scattered) - Cardiovascular Cardiovascular exam: Present: regular rate and rhythm - GI/Abdominal GI/Abdominal exam: Present: soft. Absent: tenderness - Extremities Exam Extremities exam: Present: edema (trace edema to both lower extremities) - Neurological Exam Neurological exam: Present: alert - Psychiatric Psychiatric exam: Present: normal mood - Skin Skin exam: Present: warm, dry Results - Labs CBC & BMP: 01/25/17 04:24 01/25/17 04:24 - EKG EKG shows: sinus rhythm - Diagnostic Findings Procedure: Chest x-ray: report reviewed by me Quality Measures - VTE Contraindication to Pharmacological VTE Prophylaxis: High Risk of Bleeding
--- NOTE | 2017-01-25 18:37 | Order Completion Report ---
See report scanned to EMR
[2017-01-25] MEDS: ONDANSETRON 4 MG/2 ML VIAL IV PRN (20:45)
[2017-01-26] MEDS: ALBUTEROL/IPRATROPIUM 3 ML NEB RESP TX PRN (04:20)
[2017-01-26] MEDS: ONDANSETRON 4 MG/2 ML VIAL IV PRN ×2 (05:26→23:05)
--- NOTE | 2017-01-26 07:06 | Pulmonology Progress Note ---
Pulmonary - PN: Subj Interval history: 66-year-old black male dialysis patient was hit on fluids and pulmonary edema. He has been dialyzed yesterday. He normally is on a Wednesday schedule. Feels much better and his chest x-ray shows the pulmonary edema is about 90% resolved. O2 sat is 99% on 2 L. Should be able to go to the floor today. Again I do not think he has pneumonia. Exam (Progress Note) - Constitutional Vitals: Period Temp Pulse Resp BP Sys/Pettit Pulse Ox Last 24 Hr 97.8 F-98.7 F 76-120 13-40 147-192/76-111 75-100 Exam: Patient's alert oriented vital signs normal except systolic blood pressure 165. Pupils react to light. Throat is clear. Neck is supple with no jugular venous distention. Chest reveals minimal basilar rhonchi. Heart normal rate rhythm no murmurs. Abdomen soft nontender no masses. Extremities no clubbing or cyanosis still has 1+ edema. Calves are nontender. Results - Labs CBC & BMP: 01/25/17 04:24 01/25/17 04:24 Lab Results: I have reviewed the past 24 hour labs - Diagnostic Findings Procedure: Chest x-ray: image reviewed by me (Cardiomegaly. The pulmonary edema noted yesterday looks much better. Minimal residual interstitial edema at right base) Assessment and Plan (1) Acute respiratory failure Status: Acute Assessment and plan: He was hypoxemic earlier and has improved with facemask BiPAP. Because of this is fluid overload and congestive heart failure secondary to renal failure. Normal what he has done to become fluid overloaded in the last 2 days. 01/26/2017 respiratory failure due to fluid overload and congestive heart failure. Much better after getting dialyzed. Current Visit: Yes (2) Congestive heart failure Status: Acute Assessment and plan: Need to check LV ejection fraction on echo. 01/26/2017 much better after dialysis. Echo shows ejection fraction 35-40%. Consistent with an ischemic cardiomyopathy and acute on chronic systolic congestive heart failure. Current Visit: Yes (3) Volume overload Status: Acute Assessment and plan: Patient is to have emergent dialysis. This should help his blood pressure and his fluid overload. 01/26/2017 weight is down with dialysis and pulmonary edema improved as well. Current Visit: No (4) ESRD (end stage renal disease) Status: Chronic Assessment and plan: Defer to nephrology. Was dialyzed yesterday Current Visit: No (5) Hypertension Status: Chronic Assessment and plan: Pressures improved with current medications. Should get better with dialysis. 01/26/2017 blood pressure much better postdialysis Current Visit: No Qualifiers:
[2017-01-26] MEDS: BUDESONIDE 0.25 MG/2 ML NEB RESP TX SCH ×2 (07:13→19:32)
--- NOTE | 2017-01-26 07:37 | XRay Report ---
History is CHF Comparison 01/25/2017 The heart and vessels remain enlarged with mild improvement. Prior diffuse edema has improved with minimal interstitial edema remaining. No consolidation. Impression: Interval improvement with mild residual interstitial edema PROCEDURE INTERPRETED AT [facility] DEPARTMENT OF RADIOLOGY Final Report Signed by: Dr. Cindy Sales
[2017-01-26] MEDS ORDERED: DEXTROSE 50% 25 GM/50 ML VIAL IV PRN (07:52)
[2017-01-26] MEDS ORDERED: GLUCAGON 1 MG VIAL IM PRN (07:52)
[2017-01-26] MEDS: PANTOPRAZOLE 40 MG TABLET PO SCH (08:42)
[2017-01-26] MEDS: ISOSORBIDE MONONITRATE 60 MG TABLET PO SCH (08:43)
[2017-01-26] MEDS: DOCUSATE SODIUM 100 MG CAPSULE PO SCH ×2 (08:43→21:01)
[2017-01-26] MEDS: cloNIDine 0.1 MG TABLET PO SCH (08:43)
[2017-01-26 08:49] LABS: Calcium 7.9 MG/DL (8.5-10.1); Magnesium 2.1 MG/DL (1.8-2.4); Osmolality,Calculated 279.8 MOS/KG (273-304); Phosphorous 3.6 MG/DL (2.5-4.9); Potassium 4.2 MMOL/L (3.5-5.1)
--- NOTE | 2017-01-26 11:40 | Nephrology Progress Note ---
Nephrology - PN: Subj Interval history: He feels much better today. No shortness of breath on room air. Exam (PN)-Nephrology - Vital Signs Vital signs: Period Temp Pulse Resp BP Sys/Pettit Pulse Ox Last 24 Hr 97.9 F-98.8 F 76-89 13-34 139-192/75-111 90-100 Exam: Gen.: Alert and oriented x3. ENT: Pupils equal round reactive to light. EOMs intact. Mucous membranes moist. Neck: Supple. No JVD or bruit. Cardiovascular: Regular rate and rhythm. No murmur rub or gallop Lungs: Clear Abdomen: Soft. Nontender. Positive bowel sounds. No organomegaly Extremities: 1+ edema - Lab 01/25/17 04:24 01/26/17 08:06 Most recent lab results Calcium 7.9 MG/DL (8.5-10.1) L 01/26/17 08:06 Phosphorus 3.6 MG/DL (2.5-4.9) 01/26/17 08:06 Magnesium 2.1 MG/DL (1.8-2.4) 01/26/17 08:06 Assessment and Plan (1) ESRD (end stage renal disease) Status: Chronic Assessment and plan: 66-year-old man with: * ESRD. Dialysis today * Pulmonary edema. Much improved after dialysis yesterday. Stable to move to floor * Hypertension * Diabetes mellitus Current Visit: Yes (2) Volume overload Status: Acute Current Visit: Yes Qualifiers: Hypervolemia type: other Qualified Code(s): E87.79 - Other fluid overload (3) Diabetes mellitus Status: Chronic Current Visit: Yes Qualifiers: Diabetes mellitus type: type 2 Diabetes mellitus complication status: with kidney complications Diabetes mellitus complication detail: with chronic kidney disease Diabetes mellitus manager terminal insulin use: with [facility] use Chronic kidney disease stage: on chronic dialysis Qualified Code(s): E11.22 - Type 2 diabetes mellitus with diabetic chronic kidney disease; N18.6 - End stage renal disease; Z99.2 - Dependence on renal dialysis; Z99.2 - Dependence on renal dialysis; Z99.2 - Dependence on renal dialysis; N18.6 - End stage renal disease; N18.6 - End stage renal disease; N18.6 - End stage renal disease ; Z79.4 - bed bug exterminator (current) use of insulin; Z79.4 - bed bug exterminator (current) use of insulin; Z79.4 - bed bug exterminator (current) use of insulin; Z79.4 - bed bug exterminator ( current) use of insulin; Z99.2 - Dependence on renal dialysis (4) Hypertension Status: Chronic Current Visit: Yes Qualifiers: Hypertension type: essential hypertension
[2017-01-26] MEDS: INSULIN REGULAR 100 UNIT/ML SUBCUT SCH ×3 (11:53→21:01)
--- NOTE | 2017-01-26 18:55 | Internal Med Progress Note ---
Assessment and Plan (1) Acute respiratory failure Status: Acute Current Visit: Yes Qualifiers: Respiratory failure complication: hypoxia Qualified Code(s): J96.01 - Acute respiratory failure with hypoxia (2) Volume overload Status: Acute Current Visit: Yes Qualifiers: Hypervolemia type: other Qualified Code(s): E87.79 - Other fluid overload (3) Diabetes mellitus Status: Chronic Current Visit: Yes Qualifiers: Diabetes mellitus type: type 2 Diabetes mellitus complication status: with kidney complications Diabetes mellitus complication detail: with chronic kidney disease Diabetes mellitus [facility] insulin use: with [facility] use Chronic kidney disease stage: on chronic dialysis Qualified Code(s): E11.22 - Type 2 diabetes mellitus with diabetic chronic kidney disease; N18.6 - End stage renal disease; N18.6 - End stage renal disease; N18.6 - End stage renal disease; N18.6 - End stage renal disease; Z79.4 - intermediate card tender (current) use of insulin; Z79.4 - intermediate card tender (current) use of insulin; Z79.4 - jail (current ) use of insulin; Z79.4 - jail (current) use of insulin; Z99.2 - Dependence on renal dialysis; Z99.2 - Dependence on renal dialysis; Z99.2 - Dependence on renal dialysis; Z99.2 - Dependence on renal dialysis (4) ESRD (end stage renal disease) Status: Chronic Current Visit: Yes (5) Hypertension Status: Chronic Current Visit: Yes Qualifiers: Hypertension type: essential hypertension Qualified Code(s): I10 - Essential (primary) hypertension Internal Medicine - PN: Subj Interval history: Mr. Gale is a 66 year old male with ESRD on hemodialysis, HTN, DM, cardiomyopathy with LVEF 40%, pulmonary hypertension, history of peripheral edema and skin wounds, generalized weakness and wheelchair bound, presented to ER with worsening shortness of breath and volume overload. Jan 26: he is feeling better today. Will discharge to home within the next 1- 2 days. Exam (Progress Note) - Constitutional Vitals: Period Temp Pulse Resp BP Sys/Pettit Pulse Ox Last 24 Hr 97.8 F-98.8 F 76-89 13-27 124-176/75-102 90-100 General appearance: no acute distress - Respiratory Respiratory exam: Present: clear to auscultation bilaterally - Cardiovascular Cardiovascular exam: Present: regular rate and rhythm - GI/Abdominal GI/Abdominal exam: Present: soft. Absent: tenderness - Extremities Exam Extremities exam: Absent: edema - Neurological Exam Neurological exam: Present: alert - Psychiatric Psychiatric exam: Present: normal mood - Skin Skin exam: Present: warm, dry Results - Labs CBC & BMP: 01/25/17 04:24 01/26/17 08:06 Quality Measures - VTE Contraindication to Pharmacological VTE Prophylaxis: High Risk of Bleeding
[2017-01-27 07:12] LABS: Calcium 8.4 MG/DL (8.5-10.1); Osmolality,Calculated 284.4 MOS/KG (273-304)
[2017-01-27] MEDS: BUDESONIDE 0.25 MG/2 ML NEB RESP TX SCH (07:20)
[2017-01-27] MEDS: INSULIN REGULAR 100 UNIT/ML SUBCUT SCH ×3 (08:02→16:13)
[2017-01-27] MEDS: ISOSORBIDE MONONITRATE 60 MG TABLET PO SCH (09:06)
[2017-01-27] MEDS: DOCUSATE SODIUM 100 MG CAPSULE PO SCH (09:06)
[2017-01-27] MEDS: PANTOPRAZOLE 40 MG TABLET PO SCH (09:06)
[2017-01-27] MEDS: cloNIDine 0.1 MG TABLET PO SCH (09:09)
--- NOTE | 2017-01-27 09:27 | Pulmonology Progress Note ---
Pulmonary - PN: Subj Interval history: 66-year-old black male dialysis patient was hit on fluids and pulmonary edema. He has been dialyzed yesterday. He normally is on a Wednesday schedule. Feels much better and his chest x-ray shows the pulmonary edema is about 90% resolved. O2 sat is 99% on 2 L. Should be able to go to the floor today. Again I do not think he has pneumonia. 01/27/2017 patient's weight is down 5 kg after dialysis yesterday. Feeling much better. Should be ready for discharge. I think this was mainly a fluid event. Could stop antibiotics anytime. Exam (Progress Note) - Constitutional Vitals: Period Temp Pulse Resp BP Sys/Pettit Pulse Ox Last 24 Hr 97.1 F-98.4 F 76-85 14-20 124-164/65-88 96-100 Exam: Patient's alert oriented vital signs normal except systolic blood pressure 165. Pupils react to light. Throat is clear. Neck is supple with no jugular venous distention. Chest reveals minimal basilar rhonchi. Heart normal rate rhythm no murmurs. Abdomen soft nontender no masses. Extremities no clubbing or cyanosis no edema. Calves are nontender. Results - Labs CBC & BMP: 01/25/17 04:24 01/27/17 05:46 Lab Results: I have reviewed the past 24 hour labs Assessment and Plan (1) Acute respiratory failure Status: Acute Assessment and plan: He was hypoxemic earlier and has improved with facemask BiPAP. Because of this is fluid overload and congestive heart failure secondary to renal failure. Normal what he has done to become fluid overloaded in the last 2 days. 01/26/2017 respiratory failure due to fluid overload and congestive heart failure. Much better after getting dialyzed. 01/27/2017 could check room air O2 sat. Current Visit: Yes Qualifiers: Respiratory failure complication: hypoxia Qualified Code(s): J96.01 - Acute respiratory failure with hypoxia (2) Congestive heart failure Status: Acute Assessment and plan: Need to check LV ejection fraction on echo. 01/26/2017 much better after dialysis. Echo shows ejection fraction 35-40%. Consistent with an ischemic cardiomyopathy and acute on chronic systolic congestive heart failure. 01/27/2017 much improved after dialysis. Patient is subject to congestive heart failure if he gets that he had on fluid between dialysis. Current Visit: Yes (3) Volume overload Status: Acute Assessment and plan: Patient is to have emergent dialysis. This should help his blood pressure and his fluid overload. 01/26/2017 weight is down with dialysis and pulmonary edema improved as well. 01/27/2017 this is resolved. Current Visit: Yes Qualifiers: Hypervolemia type: other Qualified Code(s): E87.79 - Other fluid overload (4) ESRD (end stage renal disease) Status: Chronic Assessment and plan: Defer to nephrology. Was dialyzed yesterday 01/27/2017 patient was dialyzed both Wednesday and Wednesday. Current Visit: Yes (5) Hypertension Status: Chronic Assessment and plan: Pressures improved with current medications. Should get better with dialysis. 01/26/2017 blood pressure much better postdialysis 01/27/2017 systolic pressure in the 150 range. Current Visit: Yes Qualifiers: Hypertension type: essential hypertension Qualified Code(s): I10 - Essential (primary) hypertension
[2017-01-27 16:34] VITALS: BP 140/74
--- NOTE | 2017-01-27 17:24 | Discharge Summary ---
Hospital Course - Hospital Course Hospital Course: Mr. Gale is a 66 year old male with ESRD on hemodialysis, HTN, DM, cardiomyopathy with LVEF 40%, pulmonary hypertension, history of peripheral edema and skin wounds, generalized weakness and wheelchair bound, presented to ER with worsening shortness of breath and volume overload. He is now doing better after hemodialysis last two days. Will discharge him to home. Diagnosis - Discharge Diagnosis (1) Acute respiratory failure Status: Resolved (2) Volume overload Status: Resolved (3) Diabetes mellitus Status: Chronic (4) ESRD (end stage renal disease) Status: Chronic (5) Hypertension Status: Chronic Discharge Plan - Discharge Data Disposition: Disch To Home/Self Care Condition at Discharge: Stable Discharge Diet: other (renal diet) Activity: increase activity as tolerated - Discharge Medications New Acetaminophen Tab [Tylenol Tab] 650 mg PO Q6H PRN tablet PRN Reason: Fever > 100.4 Or Headache Docusate Sodium Cap [Colace Cap] 100 mg PO BID capsule Continue Lovastatin 20 mg PO DAILY cloNIDine TAB [Catapres Tab] 0.1 mg PO DAILY Sevelamer Carbonate Tab [Renvela Tab] 800 mg PO TID W/MEALS Levothyroxine Tab [Synthroid Tab] 50 mcg PO DAILY@0700 Isosorbide Mononitrate [Imdur] 60 mg PO DAILY NIFEdipine XL TAB [Procardia Xl] 90 mg PO DAILY Allopurinol 200 mg PO DAILY Ondansetron Tab [Zofran Tab] 4 mg PO TID PRN PRN Reason: Nausea traMADol TAB [Ultram] 50 mg PO Q4H PRN PRN Reason: Pain Travoprost 0.004% Oph Soln [Travatan Z] 1 drop BOTH EYES BEDTIME Pantoprazole Sodium [Protonix] 40 mg PO DAILY Metoclopramide Tab [Reglan Tab] 1 tablet PO BID Lidocaine/Prilocaine [Lidocaine/Prilocaine 2.5%-2.5% Cream Kit] 1 applic TRANSDERM DIRECTED Insulin Detemir [Levemir FlexPen] 30 units SUBCUT DAILY W/BREAKFAST Albuterol Sulfate [Proair HFA] 2 puff INH Q4HR PRN PRN Reason: Shortness Of Breath Insulin Detemir [Levemir FlexPen] 15 units SUBCUT BEDTIME Cinacalcet [Sensipar] 30 mg PO DAILY Docusate Sodium Cap [Colace Cap] 100 mg PO BID PRN PRN Reason: Constipation - Follow Up or Referral Follow Up: Thi Barrera DO [Primary Care Provider] - - Forms/Instructions Additional Discharge Instructions: Follow up with Dr. Anna Barrera in clinic within 2 weeks. Follow up with hemodialysis and Dr. Stapleton per schedule already set. Exam - Constitutional Vitals: Period Temp Pulse Resp BP Sys/Pettit Pulse Ox Last 24 Hr 97.1 F-98.4 F 71-85 16-20 132-164/61-78 96-100 General appearance: no acute distress - Respiratory Respiratory exam: Present: clear to auscultation bilaterally - Cardiovascular Cardiovascular exam: Present: regular rate and rhythm - GI/Abdominal GI/Abdominal exam: Present: soft - Extremities Exam Extremities exam: Absent: edema - Neurological Exam Neurological exam: Present: alert - Psychiatric Psychiatric exam: Present: normal mood - Skin Skin exam: Present: warm, dry Discharge Results Procedures and tests throughout hospitalization: Pending Orders 01/28/17 04:00 Basic Metabolic Panel IN AM Labs on day of discharge: Labs from last 24 hours 01/27/17 01/27/17 01/27/17 15:55 11:50 07:31 Sodium Potassium Chloride Carbon Dioxide Anion Gap BUN Creatinine GFR Calculation BUN/Creatinine Ratio Glucose POC Glucose 139 H 264 H 144 H Calculated Osmolality Calcium 01/27/17 01/26/17 01/26/17 05:46 20:06 17:35 Sodium 140 Potassium 4.0 Chloride 100 Carbon Dioxide 31 Anion Gap 13.0 BUN 24 H Creatinine 5.70 H GFR Calculation 14 BUN/Creatinine Ratio 4.00 L Glucose 129 H POC Glucose 177 H 158 H Calculated Osmolality 284.4 Calcium 8.4 L DS: Provider Date of admission: 01/25/17 06:01 Primary care physician: Thi Barrera DO Attending physician on admission: Thi Barrera DO Consults: 01/25/17 06:01 Consult to Case Mgmt/Social Srvs [CONS] Routine Reason for Case Mgmt/Social Srvs: Discharge Planning 01/25/17 06:04 Consult to Physician [CONS] Routine Comment: Consulting Provider: Alan Stapleton Person Notified: Carmela Date Notified: 01/25/17 Time Notified: 08:55 01/25/17 09:42 Consult to Physician [CONS] Routine Comment: resp. distress Consulting Provider: Consulting Provider Notified: Yes Consult to Specialist Group: Pulmonology Person Notified: GLORIA Date Notified: 01/25/17 Time Notified: 10:15 Discharging clinician: Thi Barrera DO Expected date of discharge: 01/27/17
--- NOTE | 2017-01-27 18:47 | Nephrology Progress Note ---
Nephrology - PN: Subj Interval history: He denies shortness of breath. No new symptoms Exam (PN)-Nephrology - Vital Signs Vital signs: Period Temp Pulse Resp BP Sys/Pettit Pulse Ox Last 24 Hr 97.1 F-98.4 F 71-85 16-20 132-164/61-78 96-100 Exam: ENT: Normal Cardiovascular: Regular rate and rhythm. No murmur rub or gallop Lungs: Clear Extremities: 1+ edema - Lab 01/25/17 04:24 01/27/17 05:46 Most recent lab results Calcium 8.4 MG/DL (8.5-10.1) L 01/27/17 05:46 Phosphorus 3.6 MG/DL (2.5-4.9) 01/26/17 08:06 Magnesium 2.1 MG/DL (1.8-2.4) 01/26/17 08:06 Assessment and Plan (1) ESRD (end stage renal disease) Status: Chronic Assessment and plan: 66-year-old man with: * ESRD. * Pulmonary edema. Resolved * Hypertension * Diabetes mellitus (2) Volume overload Status: Resolved Qualifiers: Hypervolemia type: other Qualified Code(s): E87.79 - Other fluid overload (3) Diabetes mellitus Status: Chronic Qualifiers: Diabetes mellitus type: type 2 Diabetes mellitus complication status: with kidney complications Diabetes mellitus complication detail: with chronic kidney disease Diabetes mellitus termite technician insulin use: with [facility] use Chronic kidney disease stage: on chronic dialysis Qualified Code(s): E11.22 - Type 2 diabetes mellitus with diabetic chronic kidney disease; N18.6 - End stage renal disease; Z99.2 - Dependence on renal dialysis; Z99.2 - Dependence on renal dialysis; Z99.2 - Dependence on renal dialysis; N18.6 - End stage renal disease; N18.6 - End stage renal disease; N18.6 - End stage renal disease ; Z79.4 - group home (current) use of insulin; Z79.4 - group home (current) use of insulin; Z79.4 - group home (current) use of insulin; Z79.4 - group home ( current) use of insulin; Z99.2 - Dependence on renal dialysis (4) Hypertension Status: Chronic Qualifiers: Hypertension type: essential hypertension Qualified Code(s): I10 - Essential (primary) hypertension Specialty Discharge - Follow Up or Referrals Follow up with: Thi Barrera DO [Primary Care Provider] - 2 Weeks
== END 2017-01-27 18:42 | disposition home or self-care (01) | DRG 291 ==
LOC: N.ED 04:22 → N.EDINP 06:01 → N.TELEN 07:53 → N.ICU 09:40 → N.5E 01-26 14:06
PROVIDERS: ADMIT Internal Medicine; ATTEND Internal Medicine

== ENCOUNTER 2019-11-21 22:09 | Observation (INO) ==
[2019-11-21 22:41] LABS: Basophils # 0.1 10*3/uL (0.0-0.2); Eosinophils # 0.2 10*3/uL (0.0-0.87); Eosinophils % 3.3 % (0.00-10.9); Hematocrit 24.2 VOL% (42.0-52.0); Hemoglobin 7.6 GM/DL (14.0-18.0); Immature Granulocytes % 0.2 %; Immature Granulocytes Absolute 0.01 #; Lymphocytes # 0.6 10*3/uL (1.4-4.0); Mean Corpuscular HGB Conc 31.4 GM/DL (32-36); Mean Corpuscular Volume 89.3 FL (87-102); Mean Platelet Volume 9.5 FL (9.6-12.0); Monocytes % 5.1 % (1.7-12.7); Neutrophils % 78.4 % (38.7-73.9); Platelet Count 91 T/CUMM (130-400); Red Blood Count 2.71 MC/CUMM (3.8-5.5); Red Cell Distribution Width 17.2 % (9.3-17.3); White Blood Count 5.1 T/CUMM (4-12)
[2019-11-21 22:49] LABS: INR 1.1; PT Patient Result 11.7 SECS (9.8-11.9); Partial Thromboplastin Time 29.3 SECS (23.9-33.8)
[2019-11-21] MEDS ORDERED: NITROGLYCERIN 2% OINT 1 INCH/GM PACK TOP STA (22:59)
[2019-11-21 23:02] LABS: Alanine Aminotransferase < 6 U/L (16-61); Albumin 3.3 G/DL (3.4-5.0); Alkaline Phosphatase 130 U/L (45-117); Aspartate Amino Transferase 15 U/L (0-37); Blood Urea Nitrogen 11 MG/DL (7-18); Calcium 9.1 MG/DL (8.5-10.1); Estimated Glom Filtration Rate 20 ML/MIN; Glucose 202 MG/DL (74-106); Osmolality,Calculated 274.1 MOS/KG (273-304); Total Protein 7.1 G/DL (6.4-8.3)
[2019-11-21 23:17] LABS: Ferritin 1286.7 ng/ml (26-388)
[2019-11-22] MEDS ORDERED: ACETAMINOPHEN 325 MG TABLET PO PRN (00:35)
[2019-11-22] MEDS ORDERED: hydrALAZINE 20 MG/1 ML VIAL IV STA ×2 (01:29→03:00)
[2019-11-22] MEDS ORDERED: MORPHINE 4 MG/1 ML VIAL IV STA (02:49)
[2019-11-22] MEDS ORDERED: FUROSEMIDE 40 MG/4 ML VIAL IV PRN (03:24)
[2019-11-22] MEDS ORDERED: cloNIDine 0.1 MG TABLET PO PRN (03:25)
[2019-11-22 05:49] LABS: Basophils % 0.8 % (0.0-0.8); Eosinophils # 0.1 10*3/uL (0.0-0.87); Eosinophils % 2.1 % (0.00-10.9); Hematocrit 21.9 VOL% (42.0-52.0); Hemoglobin 7.2 GM/DL (14.0-18.0); Immature Granulocytes % 0.4 %; Immature Granulocytes Absolute 0.02 #; Lymphocytes # 0.5 10*3/uL (1.4-4.0); Lymphocytes % 9.5 % (21.2-54.2); Mean Corpuscular HGB Conc 32.9 GM/DL (32-36); Mean Corpuscular Volume 86.6 FL (87-102); Mean Platelet Volume 10.6 FL (9.6-12.0); Neutrophils % 82.2 % (38.7-73.9); Platelet Count 84 T/CUMM (130-400); Red Blood Count 2.53 MC/CUMM (3.8-5.5); Red Cell Distribution Width 17.2 % (9.3-17.3); White Blood Count 4.8 T/CUMM (4-12)
[2019-11-22 06:16] LABS: Alanine Aminotransferase < 6 U/L (16-61); Albumin 3.1 G/DL (3.4-5.0); Alkaline Phosphatase 112 U/L (45-117); Aspartate Amino Transferase 14 U/L (0-37); Blood Urea Nitrogen 14 MG/DL (7-18); Estimated Glom Filtration Rate 17 ML/MIN; Glucose 210 MG/DL (74-106); Osmolality,Calculated 276.1 MOS/KG (273-304); Total Protein 6.7 G/DL (6.4-8.3)
[2019-11-22 06:25] LABS: Hypochromasia 1+
[2019-11-22 06:26] LABS: Anisocytosis 1+; Microcytosis 1+; Ovalocytes Few; Platelet Estimate Decreased; Target Cells Slight
[2019-11-22] MEDS ORDERED: POTASSIUM CHLORIDE 20 MEQ TABLET PO ONE (09:38)
[2019-11-22] MEDS ORDERED: DEXTROSE 50% 25 GM/50 ML VIAL IV PRN (09:39)
[2019-11-22] MEDS ORDERED: GLUCAGON 1 MG VIAL IM PRN (09:39)
[2019-11-22] MEDS: PANTOPRAZOLE 40 MG TABLET PO SCH (10:28)
[2019-11-22] MEDS: ONDANSETRON 4 MG/2 ML VIAL IV PRN (11:58)
[2019-11-22] MEDS: ALBUTEROL/IPRATROPIUM 3 ML NEB RESP TX SCH ×3 (12:07→19:16)
[2019-11-22] MEDS: POTASSIUM CHLORIDE 20 MEQ TABLET PO PRN ×4 (14:36→20:39)
[2019-11-22] MEDS ORDERED: CARBOXYMETHYLCELLULOSE 1% OPH SOLN BOTH EYES PRN (15:46)
[2019-11-22] MEDS ORDERED: traMADol 50 MG TABLET PO PRN (15:46)
[2019-11-22] MEDS ORDERED: LACTULOSE 20 GM/30 ML UDCUP PO PRN (15:46)
[2019-11-22] MEDS ORDERED: SODIUM CHLORIDE 0.9% 1,000 ML IV PRN (15:52)
[2019-11-22] MEDS: INSULIN REGULAR 100 UNIT/ML SUBCUT SCH (16:52)
[2019-11-22] MEDS: SEVELAMER CARBONATE 800 MG TABLET PO SCH (16:52)
[2019-11-22] MEDS: cilostazoL 100 MG TABLET PO SCH (20:39)
[2019-11-22] MEDS: cloNIDine 0.1 MG TABLET PO SCH (20:39)
[2019-11-22] MEDS: METOCLOPRAMIDE 5 MG TABLET PO SCH (20:40)
[2019-11-22] MEDS: TRAVOPROST 0.004% OPH SOLN 2.5 ML BOTTLE BOTH EYES SCH (20:40)
[2019-11-23] MEDS: LEVOTHYROXINE 50 MCG TABLET PO SCH (05:34)
[2019-11-23 05:37] LABS: Eosinophils # 0.2 10*3/uL (0.0-0.87); Hematocrit 22.7 VOL% (42.0-52.0); Hemoglobin 7.1 GM/DL (14.0-18.0); Immature Granulocytes % 0.5 %; Immature Granulocytes Absolute 0.02 #; Lymphocytes # 0.9 10*3/uL (1.4-4.0); Lymphocytes % 21.6 % (21.2-54.2); Mean Corpuscular HGB Conc 31.3 GM/DL (32-36); Mean Corpuscular Volume 90.4 FL (87-102); Mean Platelet Volume 10.8 FL (9.6-12.0); Monocytes % 8.1 % (1.7-12.7); Neutrophils % 63.8 % (38.7-73.9); Red Blood Count 2.51 MC/CUMM (3.8-5.5); Red Cell Distribution Width 17.2 % (9.3-17.3); White Blood Count 4.2 T/CUMM (4-12)
[2019-11-23 05:39] LABS: Platelet Count 80 T/CUMM (130-400)
[2019-11-23 05:55] LABS: Hypochromasia 2+; Platelet Estimate Decreased
[2019-11-23 05:56] LABS: Microcytosis 1+
[2019-11-23 06:01] LABS: Calcium 9.2 MG/DL (8.5-10.1); Uric Acid 2.5 MG/DL (3.5-7.2)
[2019-11-23] MEDS: ALBUTEROL/IPRATROPIUM 3 ML NEB RESP TX SCH ×3 (07:27→19:11)
[2019-11-23] MEDS ORDERED: BRINZOLAMIDE BRIMONIDINE BOTH EYES SCH (09:00)
[2019-11-23 09:18] LABS: Hepatitis B Core IgM Quant 0.13 Index; Hepatitis B Surface Ag Quant < 0.10 Index; Hepatitis B Surface Ag Result Negative (Negative); Hepatitis C Virus Ab Quant 0.02 Index; Hepatitis C Virus Ab Result Negative (Negative)
[2019-11-23] MEDS ORDERED: EPOETIN ALFA-EPBX 10,000 UNIT/ML VIAL IV PRN (10:07)
[2019-11-23] MEDS: SIMVASTATIN 10 MG TABLET PO SCH (12:07)
[2019-11-23] MEDS: ASPIRIN EC 81 MG TABLET PO SCH (12:07)
[2019-11-23] MEDS: METOCLOPRAMIDE 5 MG TABLET PO SCH ×2 (12:07→20:38)
[2019-11-23] MEDS: PANTOPRAZOLE 40 MG TABLET PO SCH (12:07)
[2019-11-23] MEDS: SEVELAMER CARBONATE 800 MG TABLET PO SCH ×3 (12:07→17:06)
[2019-11-23] MEDS: ISOSORBIDE MONONITRATE 60 MG TABLET PO SCH (12:07)
[2019-11-23] MEDS: cilostazoL 100 MG TABLET PO SCH ×2 (12:10→20:38)
[2019-11-23] MEDS: INSULIN REGULAR 100 UNIT/ML SUBCUT SCH ×2 (13:43→17:06)
[2019-11-23] MEDS ORDERED: SKIN HEALING OINT (AQUAPHOR) 50 GM TUBE TOP PRN (15:43)
[2019-11-23] MEDS: cefTRIAXone 500 MG in SYRINGE 1 EACH IV SCH (17:06)
[2019-11-23] MEDS: MENTHOL/ZINC OXIDE OINT 71 GM JAR TOP SCH (20:38)
[2019-11-23] MEDS: cloNIDine 0.1 MG TABLET PO SCH (20:38)
[2019-11-23] MEDS: TRAVOPROST 0.004% OPH SOLN 2.5 ML BOTTLE BOTH EYES SCH (20:38)
[2019-11-24] MEDS: LEVOTHYROXINE 50 MCG TABLET PO SCH (05:55)
[2019-11-24 06:04] LABS: Basophils % 0.9 % (0.0-0.8); Eosinophils # 0.3 10*3/uL (0.0-0.87); Eosinophils % 7.6 % (0.00-10.9); Hematocrit 21.3 VOL% (42.0-52.0); Immature Granulocytes % 0.7 %; Immature Granulocytes Absolute 0.03 #; Lymphocytes # 0.8 10*3/uL (1.4-4.0); Lymphocytes % 16.7 % (21.2-54.2); Mean Corpuscular HGB Conc 31.9 GM/DL (32-36); Mean Corpuscular Volume 89.9 FL (87-102); Mean Platelet Volume 9.9 FL (9.6-12.0); Monocytes % 9.4 % (1.7-12.7); Neutrophils % 64.7 % (38.7-73.9); Red Blood Count 2.37 MC/CUMM (3.8-5.5); Red Cell Distribution Width 17.2 % (9.3-17.3); White Blood Count 4.5 T/CUMM (4-12)
[2019-11-24 06:05] LABS: Hemoglobin 6.8 GM/DL (14.0-18.0); Platelet Count 82 T/CUMM (130-400)
[2019-11-24 06:38] LABS: Alanine Aminotransferase < 9 U/L (16-61); Albumin 2.9 G/DL (3.4-5.0); Alkaline Phosphatase 101 U/L (45-117); Aspartate Amino Transferase 14 U/L (0-37); Blood Urea Nitrogen 20 MG/DL (7-18); Calcium 9.6 MG/DL (8.5-10.1); Estimated Glom Filtration Rate 16 ML/MIN; Glucose 147 MG/DL (74-106); Osmolality,Calculated 273.2 MOS/KG (273-304); Total Protein 6.4 G/DL (6.4-8.3); Uric Acid 2.2 MG/DL (3.5-7.2)
[2019-11-24] MEDS: ALBUTEROL/IPRATROPIUM 3 ML NEB RESP TX SCH ×3 (07:40→19:29)
[2019-11-24] MEDS: INSULIN REGULAR 100 UNIT/ML SUBCUT SCH ×2 (09:14→16:56)
[2019-11-24] MEDS: SEVELAMER CARBONATE 800 MG TABLET PO SCH ×3 (09:15→16:56)
[2019-11-24] MEDS: SIMVASTATIN 10 MG TABLET PO SCH (09:16)
[2019-11-24] MEDS: MENTHOL/ZINC OXIDE OINT 71 GM JAR TOP SCH ×2 (09:16→21:16)
[2019-11-24] MEDS: METOCLOPRAMIDE 5 MG TABLET PO SCH ×2 (09:16→21:15)
[2019-11-24] MEDS: ISOSORBIDE MONONITRATE 60 MG TABLET PO SCH (09:16)
[2019-11-24] MEDS: ASPIRIN EC 81 MG TABLET PO SCH (09:16)
[2019-11-24] MEDS: PANTOPRAZOLE 40 MG TABLET PO SCH (09:16)
[2019-11-24] MEDS: cilostazoL 100 MG TABLET PO SCH ×2 (09:16→21:15)
[2019-11-24 11:38] LABS: % Iron Saturation 31.2 % (18-50)
[2019-11-24] MEDS: LACTULOSE 20 GM/30 ML UDCUP PO PRN (11:53)
[2019-11-24] MEDS: cefTRIAXone 500 MG in SYRINGE 1 EACH IV SCH (16:57)
[2019-11-24] MEDS: TRAVOPROST 0.004% OPH SOLN 2.5 ML BOTTLE BOTH EYES SCH (21:16)
[2019-11-24] MEDS: cloNIDine 0.1 MG TABLET PO SCH (21:16)
[2019-11-25] MEDS: LEVOTHYROXINE 50 MCG TABLET PO SCH (05:28)
[2019-11-25] MEDS: ALBUTEROL/IPRATROPIUM 3 ML NEB RESP TX SCH ×3 (07:20→19:25)
[2019-11-25] MEDS: SEVELAMER CARBONATE 800 MG TABLET PO SCH ×3 (07:43→17:11)
[2019-11-25] MEDS: INSULIN REGULAR 100 UNIT/ML SUBCUT SCH ×2 (07:43→17:13)
[2019-11-25] MEDS: ISOSORBIDE MONONITRATE 60 MG TABLET PO SCH (09:54)
[2019-11-25] MEDS: ASPIRIN EC 81 MG TABLET PO SCH (09:54)
[2019-11-25] MEDS: MENTHOL/ZINC OXIDE OINT 71 GM JAR TOP SCH ×2 (09:54→20:23)
[2019-11-25] MEDS: PANTOPRAZOLE 40 MG TABLET PO SCH (09:54)
[2019-11-25] MEDS: cilostazoL 100 MG TABLET PO SCH ×2 (10:05→20:25)
[2019-11-25] MEDS: SIMVASTATIN 10 MG TABLET PO SCH (10:05)
[2019-11-25] MEDS: METOCLOPRAMIDE 5 MG TABLET PO SCH ×2 (10:05→20:22)
[2019-11-25] MEDS: methylPREDNISolone SOD SUC 125 MG/2 ML VIAL IV SCH ×2 (13:29→20:21)
[2019-11-25] MEDS: cefTRIAXone 500 MG in SYRINGE 1 EACH IV SCH (17:14)
[2019-11-25] MEDS: LACTULOSE 20 GM/30 ML UDCUP PO PRN (20:21)
[2019-11-25] MEDS: TRAVOPROST 0.004% OPH SOLN 2.5 ML BOTTLE BOTH EYES SCH (20:23)
[2019-11-25] MEDS: cloNIDine 0.1 MG TABLET PO SCH (20:23)
[2019-11-25] MEDS: ONDANSETRON 4 MG/2 ML VIAL IV PRN (23:34)
[2019-11-26] MEDS: LEVOTHYROXINE 50 MCG TABLET PO SCH (05:35)
[2019-11-26] MEDS: methylPREDNISolone SOD SUC 125 MG/2 ML VIAL IV SCH (05:35)
[2019-11-26 06:15] LABS: Basophils % 0.4 % (0.0-0.8); Hemoglobin 7.1 GM/DL (14.0-18.0); Immature Granulocytes % 0.4 %; Immature Granulocytes Absolute 0.02 #; Lymphocytes # 0.7 10*3/uL (1.4-4.0); Lymphocytes % 12.4 % (21.2-54.2); Mean Corpuscular HGB Conc 32.3 GM/DL (32-36); Mean Platelet Volume 10.6 FL (9.6-12.0); Monocytes % 9.7 % (1.7-12.7); Neutrophils % 77.1 % (38.7-73.9); Platelet Count 150 T/CUMM (130-400); Red Cell Distribution Width 16.9 % (9.3-17.3); White Blood Count 5.5 T/CUMM (4-12)
[2019-11-26 06:52] LABS: Calcium 9.2 MG/DL (8.5-10.1); Osmolality,Calculated 278.4 MOS/KG (273-304)
[2019-11-26] MEDS: PANTOPRAZOLE 40 MG TABLET PO SCH (09:04)
[2019-11-26] MEDS: MENTHOL/ZINC OXIDE OINT 71 GM JAR TOP SCH ×2 (09:04→20:43)
[2019-11-26] MEDS: ASPIRIN EC 81 MG TABLET PO SCH (09:04)
[2019-11-26] MEDS: METOCLOPRAMIDE 5 MG TABLET PO SCH ×2 (09:04→20:42)
[2019-11-26] MEDS: ISOSORBIDE MONONITRATE 60 MG TABLET PO SCH (09:04)
[2019-11-26] MEDS: SIMVASTATIN 10 MG TABLET PO SCH (09:04)
[2019-11-26] MEDS: INSULIN REGULAR 100 UNIT/ML SUBCUT SCH ×2 (09:05→17:06)
[2019-11-26] MEDS: cilostazoL 100 MG TABLET PO SCH ×2 (09:10→20:42)
[2019-11-26] MEDS: SEVELAMER CARBONATE 800 MG TABLET PO SCH ×3 (09:10→17:05)
[2019-11-26] MEDS: ALBUTEROL/IPRATROPIUM 3 ML NEB RESP TX SCH ×3 (11:03→19:23)
[2019-11-26] MEDS: ONDANSETRON 4 MG/2 ML VIAL IV PRN (13:09)
[2019-11-26] MEDS: LACTULOSE 20 GM/30 ML UDCUP PO PRN (13:13)
[2019-11-26] MEDS ORDERED: DEXAMETHASONE 10 MG/1 ML VIAL IV ONE (15:58)
[2019-11-26] MEDS: cefTRIAXone 500 MG in SYRINGE 1 EACH IV SCH (17:05)
[2019-11-26] MEDS: cloNIDine 0.1 MG TABLET PO SCH (20:42)
[2019-11-26] MEDS: TRAVOPROST 0.004% OPH SOLN 2.5 ML BOTTLE BOTH EYES SCH (20:42)
[2019-11-27] MEDS: LEVOTHYROXINE 50 MCG TABLET PO SCH (05:29)
[2019-11-27 06:33] LABS: Basophils % 0.2 % (0.0-0.8); Hematocrit 20.4 VOL% (42.0-52.0); Hemoglobin 6.5 GM/DL (14.0-18.0); Immature Granulocytes % 0.5 %; Immature Granulocytes Absolute 0.02 #; Lymphocytes # 0.5 10*3/uL (1.4-4.0); Lymphocytes % 11.4 % (21.2-54.2); Mean Corpuscular HGB Conc 31.9 GM/DL (32-36); Mean Corpuscular Volume 87.9 FL (87-102); Mean Platelet Volume 10.4 FL (9.6-12.0); Monocytes % 6.6 % (1.7-12.7); Neutrophils % 81.3 % (38.7-73.9); Platelet Count 157 T/CUMM (130-400); Red Blood Count 2.32 MC/CUMM (3.8-5.5); Red Cell Distribution Width 17.2 % (9.3-17.3); White Blood Count 4.4 T/CUMM (4-12)
[2019-11-27 06:47] LABS: Calcium 9.5 MG/DL (8.5-10.1); Osmolality,Calculated 277.8 MOS/KG (273-304)
[2019-11-27] MEDS: ALBUTEROL/IPRATROPIUM 3 ML NEB RESP TX SCH ×2 (07:32→13:32)
[2019-11-27] MEDS: INSULIN REGULAR 100 UNIT/ML SUBCUT SCH ×2 (10:06→16:06)
[2019-11-27] MEDS: ISOSORBIDE MONONITRATE 60 MG TABLET PO SCH (10:07)
[2019-11-27] MEDS: METOCLOPRAMIDE 5 MG TABLET PO SCH (10:07)
[2019-11-27] MEDS: SEVELAMER CARBONATE 800 MG TABLET PO SCH ×3 (10:07→17:00)
[2019-11-27] MEDS: ASPIRIN EC 81 MG TABLET PO SCH (10:07)
[2019-11-27] MEDS: MENTHOL/ZINC OXIDE OINT 71 GM JAR TOP SCH (10:07)
[2019-11-27] MEDS: cilostazoL 100 MG TABLET PO SCH (10:07)
[2019-11-27] MEDS: PANTOPRAZOLE 40 MG TABLET PO SCH (10:07)
[2019-11-27] MEDS: SIMVASTATIN 10 MG TABLET PO SCH (10:07)
[2019-11-27] MEDS: cefTRIAXone 500 MG in SYRINGE 1 EACH IV SCH (16:34)
[2019-11-27 16:51] VITALS: BP 145/89
== END 2019-11-27 18:22 | disposition home health service (06) ==
LOC: EDBD → EDUNIT# → N.ED 22:09 → N.EDINP 22:09 → N.TELEN 11-22 04:11
PROVIDERS: ADMIT Internal Medicine; ATTEND Internal Medicine